=== PATIENT | female | born 1950 | race Caucasian/White ===

== ENCOUNTER 2017-08-25 14:00 | Inpatient (IN) | payer MEDICARE ==
[~2017-08-25] VITALS: Ht 152.4 cm; Wt 46.3 kg
--- NOTE | ~2017-08-25 | PROC ---
[facility] [address] [place] [address] PROCEDURE REPORT Name: LIZ BUENO Room: [address] IN M.R.#: [id number] Admission: 08/25/17 Attend Phys: Jossie Frazier Discharge: 08/29/17 Date of : 46 Report #: [id number] THIS REPORT FOR: //name// For GI report, please see the Provation report in Peceptive 7 content. By: [id number] Records Staff BETTINA /MATIAS
[~2017-08-25 14:00] MED LIST: ACYCLOVIR 800800 MG PO; BAYER CHEWABLE81 MG PO; EMBREL; METHOTREXATE 22.5 M1 PO; NAPROXEN250 MG PO; TRAMADOL 50 MG50 MG PO
[2017-08-25 14:10] VITALS: BP 151/83
[2017-08-25 14:48] LABS: HEMOGLOBIN 9.7 gm/dL (12.0-15.0); MCH 22.9 pg (26.0-34.0); MCHC 31.3 g/dL (28.0-37.0); MCV 73.2 fL (80.0-100.0); RBC 4.24 mil/uL (4.20-5.00); RDW-CV 18.4 % (10.5-14.5); WBC 7.6 thou/uL (4.0-11.0)
[2017-08-25 15:01] LABS: CALCIUM 9.3 mg/dL (8.5-10.1); CREATININE 0.9 mg/dL (0.6-1.3); POTASSIUM 3.3 mmol/L (3.5-5.1)
[2017-08-25 15:17] LABS: ALBUMIN 2.6 g/dL (3.4-5.0); MAGNESIUM 1.6 mg/dL (1.8-2.4); TOTAL BILIRUBIN 0.6 mg/dL (<0.1-1.0); TOTAL PROTEIN 6.8 g/dL (6.4-8.2)
[2017-08-25 18:01] LABS: URINE BLOOD NEGATIVE (Negative); URINE CLARITY CLEAR; URINE COLOR YELLOW; URINE GLUCOSE-RANDOM NEGATIVE (Negative); URINE LEUKOCYTES 1+ (Negative); URINE NITRITE NEGATIVE (Negative); URINE PROTEIN TRACE (Negative); URINE SPECIFIC GRAVITY 1.025 (1.005-1.030); URINE UROBILINOGEN 0.2 E.U./dl (0.2-1.0)
[2017-08-25 18:09] LABS: ICTOTEST (BILI CONFIRMATORY) Negative (Negative); URINE BILIRUBIN 2+ (Negative); URINE KETONES 3+ (Negative)
[2017-08-25 18:11] LABS: HYALINE CASTS 0-3 Few /LPF (None Seen); MUCUS None Seen strn/LPF (None Seen); SQUAMOUS 0-3 Few /LPF (0-3); URINE WBC 6-15 Few /HPF (0-5)
[2017-08-25 18:12] LABS: BACTERIA 1-9 Few /HPF (None Seen); URINE RBC 0-2 Rare /HPF (0-2)
[2017-08-25 18:13] LABS: AMORPHOUS URATES Few /LPF (None Seen)
[2017-08-25 20:14] VITALS: BP 144/93
[2017-08-25 20:30] VITALS: BP 168/86
--- NOTE | 2017-08-25 20:30 | NUR ---
ADMITTED FROM ER. TRANSFERRED FROM [facility] TO [facility] WITH [place]IST. DID MOVE WELL WITH ENCOURAGEMENT. PT HAVING SHORT TERM MEMORY LOSS, ASKING SAME QUESTIONS FREQ THAT WAS JUST ANSWERED. PENITENTIARY MEMORY INTACT. TELEMETRY APPLIED SHOWING SR. SEE ADMISSION ASSESSMENT AND HX. WILL CONT TO MONITOR AND ASSIST NEEDED.
--- NOTE | 2017-08-25 23:30 | NUR ---
PT C/O GENERALIZED DISCOMFORT, ARTHRITIS/FIBROMYALGIA. PT GIVEN TYLENOL STATED SHE COULD NOT TAKE THAT BIG OF PILL SO BROKE IT IN HALF. ABLE TO TAKE FIRST HALF WITHOUT DIFFICULTY BUT UNABLE TO SWALLOW SECOND. PLACED PILL IN APPLESAUCE AND IMMEDIATELY BEGAN GAGGING, THEN VOMITED. REASSURANCE GIVEN. PT NPO AFTER MN ORDERED. IV FLUIDS INFUSING.
[2017-08-26] VITALS: BP 149/84
--- NOTE | 2017-08-26 02:46 | NUR ---
PT REMAINS AWAKE AND RESTLESS. C/O ITCHING ALL OVER. ON ADMIT C/O ITCHING UNDER RT ARM. SM RED HEALING BUMP NOTED, NO INFLAMMATION NOTED. REASSURANCE GIVEN.
[2017-08-26 04:00] VITALS: BP 161/76
--- NOTE | 2017-08-26 05:56 | NUR ---
AWAKE ALL NIGHT AND RESTLESS. CONT TO C/O ITCHING ALL OVER ESPECIALLY HER BACK. NO REDNESS OR RASH NOTED. ASSISTED TO BSC, TRANSFERS WELL WITH 1 ASSIST. NO CHANGE IN ASSESSMENT. TELEMETRY CONT TO SHOW SR. HS GOAL OF SAFETY MET BUT NOT REST. HOURLY OBSERVATION
[2017-08-26 08:00] VITALS: BP 152/68
--- NOTE | 2017-08-26 10:44 | NUR ---
VSS, ASSUMED CARE IN THE AM, ASSESSMENT PERFORMED AND CHARTED, FALL PRECAUTIONS IN PLACE AND CALL LIGHT IN REACH, PT IS A&O4 AND UP WITH ONE, PT IS ON RA AND RACING SR ON THE MONITOR, PT HAS PAIN IN LEGS SATES PAIN 3 OUT OF 10, PT GOAL IS TO COMPLETE EGD AND SIT UP IN CHAIR, WILL FOLLOW WITH PLAN O CARE,
[2017-08-26 11:19] VITALS: BP 152/68
[2017-08-26 12:33] LABS: % SATURATION 9 % (20-39); IRON 25 ug/dL (50-175)
[2017-08-26 14:11] VITALS: BP 135/66
--- NOTE | 2017-08-26 19:53 | NUR ---
vss, pt is NOT PROGRESSING TOWARDS GOAL, PT REFUSED TO COMPLETED GASTRIC EMPTYING STUDY, AND IS VERY NEEDY, CALLS OUT FOR EVERY LITTLE THING, PT IS ON RA AND IS TRACING SR ON THE MONITOR, BUT REFUSES TO TAKE ANY TYLENOL. PT IS UP WITH ONE TO BSC. HOURLY ROUNDS COMPLETED.
[2017-08-26 20:00] VITALS: BP 164/82
--- NOTE | 2017-08-26 20:00 | NUR ---
RECEIVED REPORT AND ASSUMED CARE OF PT, ASSESSMENT COMPLETED. MULTIPLE FAMILY IN ROOM. THEY HAVE CONCERNS ABOUT PT NOT GETTING HER PAIN MED. EXPLAINED THROAT HAD BEEN DILATED BUT PT REFUSING TO TAKE PILLS STATING SHE NEVER COULD TAKE THEM. CONCERNED ABOUT NEED FOR SOLAR DESIGN ENGINEER CONSULT EXPLAINED NEED TO FOLLOW UP WHEN DISCHARGED. CONCERNED ABOUT NOT EATING AND GETTING NUTRITION, REASSURANCE GIVEN. EXPLAINED TO FAMILY PT WOULD BE PLACED INTO ISOLATION DUE TO MRSA SCREEN CAME BACK POSITIVE. TELEMETRY ON SHOWING SR. WILL CONT TO MONITOR AND ASSIST NEEDED.
[2017-08-27 00:30] VITALS: BP 132/91
[2017-08-27 04:27] VITALS: BP 163/76
--- NOTE | 2017-08-27 06:57 | NUR ---
SLEPT WELL. ASSISTED TO BSC, TRANSFERS WELL WITH 1 ASSIST. BP INCREASED AND HR INCREASED. SEE INTERVENTIONS. PT DOES NOT WANT TO DO THINGS FOR HERSELF, ENCOURAGEMENT GIVEN. MET HS GOALS OF REST AND SAFETY. HOURLY ROUNDING OBSERVED.
[2017-08-27 08:00] VITALS: BP 176/85
--- NOTE | 2017-08-27 09:12 | NUR ---
Pt is A&O. Resides at home with 2 sons. Pt states that she is mostly independent, she prepares the meals and they share the house upkeep. Pt states that she can drive, but states that she hasn't been driving lately. No DME. Hx of HH, but she does not recall the name of the agency. No hx of SNF. Strong support sx. [place], discussed options, Pt would want to go to either [facility] or [facility]. Referrals faxed to both. Anticipate dc within the next 1-2 days. Following.
--- NOTE | 2017-08-27 10:46 | NUR ---
[facility] Pt at dc. They are able to accept Pt on Tuesday if ready to dc. DC orders will need to be faxed to [phone]. Nurse report number is [phone]. Chart will need to be copied. Transportation will need to be arranged through [employer] [phone].
--- NOTE | 2017-08-27 13:04 | EKG ---
[place] [address] ELECTROCARDIOGRAM REPORT Name: LIZ BUENO Room: [address] ADM IN .R.#: [id number] Admission: 08/25/17 Attend Phys: Jossie Frazier Discharge: Date of : 46 Report #: [id number] THIS REPORT FOR: //name// [facility] ED Test Date: 2017-08-25 Test Time: 18:02:44 Pat Name: LIZ BUENO Department: Room: [place] [address] Gender: F [employer] Seafood: : 1950 Requested By: Marshal Park Order Number: [id number] MD: Harrison Cannon Measurements Intervals [place] Rate: 82 P: 42 [place]: 159 QRS: 35 QRSD: 89 T: -27 QT: 391 QTc: 457 Interpretive Statements Sinus rhythm Borderline T abnormalities, inferior leads No previous ECG available for comparison Electronically Signed On 08-27-2017 13:04:39 CDT by Harrison Cannon [email or web address] <ELECTRONICALLY SIGNED> By: Harrison Cannon MD, [facility] 08/27/17 1304 180 01 Harrison Cannon MD, [facility] /EPI
[2017-08-27 13:14] VITALS: BP 154/78
--- NOTE | 2017-08-27 16:21 | NUR ---
PT SOMEWHAT PROGRESSING TOWARDS GOALS THIS SHIFT. STARTED ON PT/OT THIS SHIFT. VSS. ATTEMPTED TO EAT BREAKFAST THIS AM AND BECAME NAUSEATED. FAMILY AT BEDSIDE THIS SHIFT. NO CONCERNS AT THIS TIME. CLWR. WCTM.
[2017-08-27 16:41] VITALS: BP 190/81
[2017-08-27 20:00] VITALS: BP 190/74
[2017-08-28 00:08] VITALS: BP 201/97
--- NOTE | 2017-08-28 02:16 | NUR ---
PATIENT RESTING IN BED. DENIES COMPLAINTS OF PAIN, DISCOMFORT, OR SOA. INCONT. OF BOWEL AND BLADDER. TURN EVERY 2 HOURS. BED IN LOW POSITION, CALL LIGHT IN REACH, BED ALARM ON. NO SIGN OF DISTRESS. CONT. WITH CURRENT PLAN OF CARE AT THIS TIME.
[2017-08-28 04:00] VITALS: BP 169/83
--- NOTE | 2017-08-28 06:38 | NUR ---
PATIENT SLEEPING WITHOUT COMPLAINTS. CONT. IVF WITHOUT DIFF IN LT AC 20G. DENIES PAIN, DISCOMFORT OR SOA. CONT. WITH PLAN OF CARE
[2017-08-28 08:00] VITALS: BP 182/79
[2017-08-28 11:37] VITALS: BP 151/77
[2017-08-28 14:31] LABS: ABSOLUTE BASOPHILS 0.1 thou/uL (0.0-0.2); ABSOLUTE LYMPHOCYTES 0.9 thou/uL (0.8-5.3); ABSOLUTE MONOCYTES 0.8 thou/uL (0.0-1.2); ABSOLUTE NEUTROPHILS 5.8 thou/uL (1.6-8.1); BASOPHILS 0.8 %; EOSINOPHILS 0.4 %; HEMATOCRIT 24.9 % (37.0-47.0); HEMOGLOBIN 7.9 gm/dL (12.0-15.0); LYMPHOCYTES 12.2 %; MCH 22.9 pg (26.0-34.0); MCHC 31.9 g/dL (28.0-37.0); MCV 71.8 fL (80.0-100.0); MONOCYTES 10.6 %; MPV 6.9 fl. (7.2-11.1); NUCLEATED RBCS 0 /100WBC; RBC 3.47 mil/uL (4.20-5.00); RDW-CV 18.2 % (10.5-14.5); WBC 7.6 thou/uL (4.0-11.0)
[2017-08-28 14:32] LABS: PLATELET COUNT* 372 thou/uL (150-400)
[2017-08-28 14:41] LABS: ALBUMIN 1.9 g/dL (3.4-5.0); CALCIUM 8.1 mg/dL (8.5-10.1); CREATININE 0.8 mg/dL (0.6-1.3); MAGNESIUM 1.2 mg/dL (1.8-2.4); TOTAL BILIRUBIN 0.6 mg/dL (<0.1-1.0); TOTAL PROTEIN 5.4 g/dL (6.4-8.2)
[2017-08-28 15:01] LABS: POTASSIUM 2.9 mmol/L (3.5-5.1)
[2017-08-28 15:20] LABS: ANISOCYTOSIS 2+; MICROCYTES 2+; OVALOCYTES 1+
[2017-08-28 15:21] LABS: PLATELET ESTIMATE ADEQUATE; POIKILOCYTOSIS 1+
[2017-08-28 16:04] VITALS: BP 184/79
--- NOTE | 2017-08-28 19:01 | NUR ---
patinet resting in bed. up with assist x1 to bedside commode. paitnet has been frequently educated on available pain medications. patinet has been reluctnt to attempt po medications. vital signs stable. iv magnesium and potassium infusing. hourly rounding completed for patient safety. plan fo dc to snf tomorrow for rehab.
[2017-08-28 20:00] VITALS: BP 137/60
[2017-08-29] VITALS: BP 159/80
[2017-08-29 04:00] VITALS: BP 155/78
[2017-08-29 05:07] LABS: HEMATOCRIT 23.5 % (37.0-47.0); HEMOGLOBIN 7.7 gm/dL (12.0-15.0); MCH 23.3 pg (26.0-34.0); MCHC 32.8 g/dL (28.0-37.0); MCV 71.3 fL (80.0-100.0); MPV 7.2 fl. (7.2-11.1); RBC 3.3 mil/uL (4.20-5.00); RDW-CV 18.3 % (10.5-14.5); WBC 8.4 thou/uL (4.0-11.0)
[2017-08-29 05:08] LABS: CREATININE 0.9 mg/dL (0.6-1.3); POTASSIUM 3.2 mmol/L (3.5-5.1)
--- NOTE | 2017-08-29 06:05 | NUR ---
PATIENT NOT PROGRESSING TOWARDS GOALS: PATIENT RELUCTANT TO TAKE PO MEDICATIONS DUE TO NAUSEA AND DECREASED APPETITE. PATIENT ENCOURAGED TO HYDRATE, HOWEVER, PATIENT REFUSING TO TAKE WATER. PATIENT C/O PAIN THROUGHOUT SHIFT. PATIENT EDUCATED ON NON-PHARMACOLOGICAL METHODS OF PAIN RELIEF AND ENCOURAGED TO MOVE TOLERATED TO PREVENT JOINTS FROM STIFFENING. HOWEVER, PATIENT IS QUICK TO FALL ASLEEP SO NO PAIN MEDICATION HAS BEEN ADMINISTERED THIS SHIFT. PATIENT STATES SHE IS "SO TIRED." HOURLY ROUNDING OBSERVED. CALL LIGHT WITHIN REACH
[2017-08-29 08:00] VITALS: BP 161/77
--- NOTE | 2017-08-29 09:50 | NUR ---
Pt may be ready to dc today. Plan continues to be for Pt to dc to [facility]. CM faxed therapy notes, facility is able to accept Pt today, pending Dr writing dc orders. Discussed DPOA, Pt stated that she would want to appoint her son, Damon, but stated that she does not want to complete a DPOA at this time. CM to f/u.
--- NOTE | 2017-08-29 11:52 | NUR ---
Pt discharging to [facility] today, facility to merchandise pickup/receiving associate at 2pm. Faxed dc orders and copy of newly completed DPOA, appointing Pt's sons Damon and Narinder as agents. Chart copied. Nurse report number provided, [phone]. Updated Pt's son, Damon [phone], of disposition.
[2017-08-29] MEDS ORDERED: FLORANEX TABLE1 EACH PO (11:56)
[2017-08-29] MEDS ORDERED: COLACE100 MG PO (11:56)
[2017-08-29] MEDS ORDERED: FLORASTOR250 MG PO (11:57)
[2017-08-29] MEDS ORDERED: METAMUCIL1 EAC1 PO (11:58)
[2017-08-29] MEDS ORDERED: LEVAQUIN 750 M750 MG PO (11:58)
[2017-08-29] MEDS ORDERED: IBUPROFEN 800800 M1 PO (12:00)
[2017-08-29] MEDS ORDERED: OXYCODONE HCL15 MG PO (12:04)
[2017-08-29 12:09] VITALS: BP 161/77
--- NOTE | 2017-08-29 14:00 | NUR ---
ORDER RECEIVED TO DISCHARE JONNY TO [facility] FOR REHAB NUR[facility]. MED REC, MEDICATION EDUCATION ,STROKE EDUCATION, AND NEED FOR FOLLOW UP APPOINTMENTS COVERED AND STATED UNDERSTOOD BY JONNY. IV AND TELEMETRY PACK REMOVED. PATIENT TRANSPORTED VIA WHEELCHAIR TO [facility]. REPORT CALLED TO RECEIVING RN. DC TIME OF 14:00.
--- NOTE | 2017-09-12 08:21 | CON ---
[address] [address] CONSULTATION Name: XIMENALIZ GARAY Room: [address] IN M.R.#: [id number] Admission: 08/25/17 Attend Phys: Jossei Frazier Discharge: 08/29/17 Date of : 46 Report #: [id number] THIS REPORT FOR: //name// CC: STEFANIA physician/PCP [facility] DO DICTATED BY: Lorna Perez [facility] DATE OF SERVICE: 08/26/2017 She does not have a primary care provider at this time. Please note at the time of this dictation, the patient was seen and physically examined by myself. REASON FOR CONSULTATION: Nausea and vomiting and lack of appetite. HISTORY OF PRESENT ILLNESS: This is a 67-year-old female who states that for the past month, she has had no appetite. Prior to that, she states she was eating okay. She has progressively gotten weak over the past week with little bit of nausea and when she got here, then she did have some nausea and vomiting. She denies any abdominal pain. At this time, she denies any fever or chills, any issues with acid reflux. Her weight has remained stable. She states her bowels move daily to every other day, soft and formed with no noticing of melena or bright red blood. The patient states she has had EGD and colonoscopies done in the past, but not with our group. She cannot recall when or where they were done and states that if she recalls, they were normal at that time. PAST MEDICAL HISTORY: Rheumatoid arthritis, fibromyalgia, and shingles. PAST SURGICAL HISTORY: . FAMILY HISTORY: Negative for any GI or female cancers. ALLERGIES: No known drug allergies. MEDICATIONS: From home she states aspirin, tramadol, and naproxen, all of which are p.r.n. except for the aspirin daily. SOCIAL HISTORY: The patient again denies alcohol, tobacco or illegal drug use and she lives at home with her 2 sons, but is very vague in giving any further information regarding that. REVIEW OF SYSTEMS: Twelve-point review of systems is essentially negative except what [place] [address] CONSULTATION Name: LIZ BUENO Room: [address] IN [facility].#: [id number] Admission: 08/25/17 Attend Phys: Jossie Frazier Discharge: 08/29/17 Date of : 46 Report #: [id number] PHYSICAL EXAMINATION: VITAL SIGNS: Temperature 36.9, pulse 87, respirations 18, blood pressure 152/68. HEART: Regular rate and rhythm. LUNGS: Diminished, but clear. ABDOMEN: Soft, positive bowel sounds in all 4 quadrants, which is some generalized tenderness noted to palpation. LABORATORY DATA: Hemoglobin 9.7, hematocrit 31, white count is 7.6, platelets 492. Sodium 131, potassium 3.3, chloride 97, CO2 21, BUN is 14, creatinine 0.9, GFR 62, and glucose is 106. LFTs normal. Total bilirubin 0.6, alkaline phosphatase 73, ALT 10 and AST is 19. The patient had a chest x-ray, which was normal. IMPRESSION: 1. Nausea and vomiting. 2. Loss of appetite. 3. Weakness. 4. Anemia. 5. History of RA. PLAN: 1. EGD today. 2. Labs, iron studies, B12 and ferritin. 3. Further recommendations to be made after the above have been noted. Thank you for allowing us to participate in this patient's care. Please do not hesitate to call with any questions in regard to this consult. ADDENDUM I have personally seen and examined the patient and reviewed labs and imaging. The patient with history of rheumatoid arthritis who presents with 1-month history of lack of appetite, weakness and nausea. She was found to have microcytic anemia, but denies any hematochezia or melena. She believes that she has had endoscopic evaluation about 5 years ago which was a year prior to her passing away. We will obtain these records. We will rule out different etiologies of anemia. I will also consider upper scope to see why she has early satiety and microcytic anemia. We will make further recommendation once the upper endoscopy is completed. <ELECTRONICALLY SIGNED> By: Olivia Moore MD 09/12/17 0821 1015 [id number] Moore MD /nt
--- NOTE | 2017-09-12 08:22 | CON ---
[address] [address] CONSULTATION Name: LIZ BUENO Room: [address] IN M.R.#: [id number] Admission: 08/25/17 Attend Phys: Jossie Frazier Discharge: 08/29/17 Date of : 46 Report #: [id number] THIS REPORT FOR: //name// CC: STEFANIA physician/PCP [facility] DATE OF SERVICE: 08/26/2017 ADDENDUM I have personally seen and examined the patient and reviewed labs and imaging. The patient with history of rheumatoid arthritis who presents with 1-month history of lack of appetite, weakness and nausea. She was found to have microcytic anemia, but denies any hematochezia or melena. She believes that she has had endoscopic evaluation about 5 years ago which was a year prior to her passing away. We will obtain these records. We will rule out different etiologies of anemia. I will also consider upper scope to see why she has early satiety and microcytic anemia. We will make further recommendation once the upper endoscopy is completed. <ELECTRONICALLY SIGNED> By: Olivia Moore MD 09/12/17 0822 1306 [id number] Moore MD /nt
== END 2017-08-29 13:00 | DRG 391 ==
LOC: M.ERS 14:00 → M.2W 17:25 → M.TBA-ER 17:25 → M.2W 20:30
PROVIDERS: Internal Medicine; Nurse Practitioner Adult Health; Physician Assistant Surgical; ADMIT Internal Medicine
PROC: 0DJ08ZZ Inspection of Upper Intestinal Tract, Via Natural or Artificial Opening Endoscopic (ICD-10-PCS; principal; 2017-08-26)
DX: K22.2 Esophageal obstruction (principal); E43 Unspecified severe protein-calorie malnutrition; N39.0 Urinary tract infection, site not specified; E87.1 Hypo-osmolality and hyponatremia; K44.9 Diaphragmatic hernia without obstruction or gangrene; M79.7 Fibromyalgia; M06.9 Rheumatoid arthritis, unspecified; E83.42 Hypomagnesemia; D64.9 Anemia, unspecified; Z79.899 Other long term (current) drug therapy; Z79.82 Long term (current) use of aspirin

== ENCOUNTER 2019-07-30 17:36 | Inpatient (IN) | payer MEDICARE ==
[~2019-07-30] VITALS: Ht 152.4 cm; Wt 49.5 kg
--- NOTE | ~2019-07-30 | OP ---
[address] [address] OPERATIVE REPORT Name: LIZ BUENO Room: [address] IN M.R.#: [id number] Admission: 07/30/19 Attend Phys: Sunny Alicia MD Discharge: Date of : 46 Report #: [id number] THIS REPORT FOR: //name// cc: Linsey Lara Angela Jo REAL ESTATE INVESTMENT ANALYST ~ THIS REPORT FOR: //name// CC: Linsey Alicia DICTATED BY: Mayur Sanford DO PREOPERATIVE DIAGNOSIS: Right displaced femoral neck fracture. POSTOPERATIVE DIAGNOSIS: Right displaced femoral neck fracture. PROCEDURE: Cemented right hip hemiarthroplasty utilizing the Biomet Echo FX size 9 stem with a size 43/28 bipolar head and -3 neck in addition to 1 bag of Biomet cement. SURGEON: Loyd garcia DO ASSISTANTS: Mayur Sanford DO and Osmany Caldera DO ANESTHESIA: General. FLUIDS: 1000 mL LR. ESTIMATED BLOOD LOSS: 100 mL. DRAINS: None. SPECIMENS: None. COMPLICATIONS: None. CONDITION: Stable to PACU. DISPOSITION: Recovery in PACU and transferred back to the floor. ANTIBIOTICS: 1 g Ancef IV preop. INDICATIONS FOR PROCEDURE: The patient is a very pleasant 69-year-old female. She sustained a ground-level fall last night. She sustained a displaced right femoral neck fracture. We recommended surgical intervention with prosthesis insertion. The risks, benefits, and possible complications including but not limited to bleeding, nerve injury, vascular injury, need for repeat surgery, [facility] [address] [place] [address] OPERATIVE REPORT Name: LIZ BUENO Room: [address] IN M.R.#: [id number] Admission: 07/30/19 Attend Phys: Sunny Alicia MD Discharge: Date of : 46 Report #: [id number] infection, continued or worsening pain, DVT, PE, , anesthesia complications and others were discussed. She understood this and was agreeable to proceed. DESCRIPTION OF PROCEDURE: The patient was met in the preoperative area. The correct site was marked. Consent was obtained. She was transferred to the operative suite and given the benefit of general anesthesia. She was then transferred to the OR table and placed in the lateral decubitus position. She was secured utilizing a pegboard taking care to pad all bony prominences. The right hip was then sterilely prepped and draped in the usual sterile fashion. She did receive antibiotics within 30 minutes prior to the procedure. A timeout was performed to identify the correct patient, procedure, operative site, and antibiotic administration. All in the room were in agreement. The procedure began with a lateral incision centered over the proximal femur. Sharp and blunt dissection was carried down to the fascia. The fascia was then split in line with the incision. We then continued down to the level of the gluteus muscles. The gluteus minimus and medius were then released from the greater trochanter, leaving a residual cuff in order to be repaired afterward. We then made a T capsulotomy. At this point, a fracture hematoma and the fracture was identified. We were able to dislocate the hip and subsequently remove the majority of the femoral head. We then made our neck cut approximately 1 fingerbreadth proximal to the lesser trochanter. We trialed a size 43 head in the acetabulum, which fit well and was stable with motion. We then turned our attention to preparation of the femur. A box osteotome was used to start followed by a rat tail rasp. We then initiated reaming and broaching up to a size 9. A trial 9 stem was placed followed by a -3 neck and 43 head. This was reduced and found to be stable throughout range of motion. Final components were then selected. Trial components were removed. The intramedullary canal was then prepared using copious irrigation and a scrub brush. The final components were thrown on the back table. The cement was mixed appropriately. We placed a cement restrictor into the femoral canal in the appropriate position that we marked. We then used the pressurized gun to inject cement into the femoral canal. This was then followed by placement of the final stem. The cement was allowed to harden for the appropriate amount of time. We then placed the final head and impacted this into place. It was stable on the neck. We then reduced the hip. The hip was found to be stable with shucking and through range of motion. The wound and incision was then thoroughly irrigated. We closed the capsule with Vicryl in a pxsqch-ul-hyilz fashion. We then reattached the gluteus tendons to the femur using #5 FiberWire in zbfpzo-mq-cewpe fashion. This was oversewn with #1 Vicryl sutures also in a hdrazg-vz-pwoir fashion. We then reapproximated the tensor fascia with #1 Vicryl in hecvbe-dn-bzfga fashion. The subcutaneous fat was reapproximated with interrupted 2-0 Vicryl sutures. We then reapproximated the subcutaneous tissue using 2-0 simple inverted sutures. This was followed by miki on the skin. Sterile Mepilex dressing was then applied. All needle and sponge counts were correct x 2 at the end of the case. She was extubated and transferred to the PACU in stable condition. [facility] [address] [place] [address] OPERATIVE REPORT Name: XIMENALIZ JARROD Room: [address] IN M.R.#: [id number] Admission: 07/30/19 Attend Phys: Sunny Alicia MD Discharge: Date of : 46 Report #: [id number] Garcia was present and scrubbed throughout all critical aspects of the case. There were no obvious complications. POSTOPERATIVE COURSE: She will be weightbearing as tolerated on the right lower extremity with mechanical and chemical DVT prophylaxis with Eliquis b.i.d. for 14 days. We will have her work with physical and occupational therapy. By: [id number] Garcia DO /christos
[~2019-07-30 17:36] MED LIST changes: +COLACE100 MG PO; +FLORANEX TABLE1 EACH PO; +FLORASTOR250 MG PO; +IBUPROFEN 800800 M1 PO; +LEVAQUIN 750 M750 MG PO; +METAMUCIL1 EAC1 PO; +OXYCODONE HCL15 MG PO
[2019-07-30 17:39] VITALS: BP 189/83
[2019-07-30] MEDS ORDERED: FAMOTIDINE 20 M20 MG PO (17:48)
[2019-07-30] MEDS ORDERED: PREDNISONE 5 MG5 M1 PO (17:48)
[2019-07-30] MEDS ORDERED: NAPROSYN500 M1 PO (17:48)
[2019-07-30] MEDS ORDERED: SENEXON-S 50-81 EACH PO (17:49)
[2019-07-30] MEDS ORDERED: TRAMADOL 50 MG50 MG PO (17:49)
[2019-07-30] MEDS ORDERED: VITAMIN D21250 MC1 PO (17:49)
[2019-07-30] MEDS ORDERED: DULCOLAX STOOL100 M1 PO (17:50)
[2019-07-30] MEDS ORDERED: BENADRYL25 MG PO (17:50)
[2019-07-30] MEDS ORDERED: BIOFREEZE118 ML TOP (17:51)
[2019-07-30] MEDS ORDERED: MIRALAX17 GM PO (17:51)
[2019-07-30] MEDS ORDERED: MILK OF MA400 MG/5 M PO (17:51)
[2019-07-30 18:42] LABS: ABSOLUTE BASOPHILS 0.1 thou/uL (0.0-0.2); ABSOLUTE LYMPHOCYTES 1.1 thou/uL (0.8-5.3); ABSOLUTE MONOCYTES 0.6 thou/uL (0.0-1.2); ABSOLUTE NEUTROPHILS 9.6 thou/uL (1.6-8.1); BASOPHILS 0.6 %; EOSINOPHILS 0.2 %; HEMATOCRIT 31.5 % (37.0-47.0); HEMOGLOBIN 9.9 gm/dL (12.0-15.0); LYMPHOCYTES 9.7 %; MCH 22.7 pg (26.0-34.0); MCHC 31.5 g/dL (28.0-37.0); MONOCYTES 4.9 %; MPV 6.9 fl. (7.2-11.1); NUCLEATED RBCS 0 /100WBC; PLATELET COUNT* 482 thou/uL (150-400); POLYS 84.6 %; RBC 4.37 mil/uL (4.20-5.00); RDW-CV 18.3 % (10.5-14.5); WBC 11.4 thou/uL (4.0-11.0)
[2019-07-30 18:51] LABS: CALCIUM 9.1 mg/dL (8.5-10.1); CREATININE 1.2 mg/dL (0.6-1.3); POTASSIUM 4.3 mmol/L (3.5-5.1)
[2019-07-30 18:56] LABS: TOTAL BILIRUBIN 0.4 mg/dL (<0.1-1.0); TOTAL PROTEIN 6.9 g/dL (6.4-8.2)
[2019-07-30 19:03] LABS: ANISOCYTOSIS 1+; OVALOCYTES 1+
[2019-07-30 19:04] LABS: HYPOCHROMASIA 1+; MICROCYTES 2+; PLATELET ESTIMATE ADEQUATE
[2019-07-30 19:45] VITALS: BP 184/103
[2019-07-30 19:56] LABS: APTT 25.4 Seconds (25.0-31.3); PROTIME 10.3 Seconds (9.20-11.50)
[2019-07-30 20:30] VITALS: BP 143/71
[2019-07-31 04:14] VITALS: BP 164/79
[2019-07-31 06:20] LABS: HEMATOCRIT 30.5 % (37.0-47.0); HEMOGLOBIN 9.8 gm/dL (12.0-15.0); MCH 23.1 pg (26.0-34.0); MCHC 32.2 g/dL (28.0-37.0); MCV 71.7 fL (80.0-100.0); MPV 6.7 fl. (7.2-11.1); NUCLEATED RBCS 0 /100WBC; PLATELET COUNT* 464 thou/uL (150-400); RBC 4.26 mil/uL (4.20-5.00); RDW-CV 18.3 % (10.5-14.5); WBC 10.6 thou/uL (4.0-11.0)
[2019-07-31 06:26] LABS: CALCIUM 9.2 mg/dL (8.5-10.1); CREATININE 1.2 mg/dL (0.6-1.3); POTASSIUM 4.4 mmol/L (3.5-5.1)
[2019-07-31 06:55] LABS: ABSOLUTE LYMPHOCYTES 0.6 thou/uL (0.8-5.3); ABSOLUTE MONOCYTES 0.1 thou/uL (0.0-1.2); ABSOLUTE NEUTROPHILS 9.9 thou/uL (1.6-8.1); MICROCYTES 1+; PLATELET ESTIMATE INCREASED
[2019-07-31 06:56] LABS: ANISOCYTOSIS 1+; HYPOCHROMASIA Occasional; OVALOCYTES 1+; POIKILOCYTOSIS 1+
[2019-07-31] MEDS ORDERED: NAPROXEN250 MG PO (07:04)
[2019-07-31] MEDS ORDERED: OXYCODONE HCL10 MG PO (07:06)
[2019-07-31] MEDS ORDERED: DULCOLAX STOOL100 M1 PO (07:08)
[2019-07-31 08:00] VITALS: BP 170/84
--- NOTE | 2019-07-31 11:02 | EKG ---
[place] [address] ELECTROCARDIOGRAM REPORT Name: LIZ BUENO Room: [address] ADM IN M.R.#: [id number] Admission: 07/30/19 Attend Phys: Sunny Alicia, Discharge: Date of : 46 Date of Service: 07/30/191920 Report #: [id number] THIS REPORT FOR: //name// [facility] ED Test Date: 2019-07-30 Test Time: 19:21:49 Pat Name: LIZ BUENO Department: Room: [facility] Gender: F Qm Nurse: K[facility] : 1950 Requested By: Melissa Vásquez Order Number: [id number] MD: Jesus Arndt Measurements Intervals [place] Rate: 66 P: 44 [place]: 147 QRS: 40 QRSD: 80 T: -53 QT: 421 QTc: 442 Interpretive Statements Sinus rhythm Probable LVH with secondary repol abnrm Baseline wander in lead(s) V4 Compared to ECG 08/25/2017 18:02:44 No significant change Electronically Signed On 07-31-2019 11:01:21 CDT by Jesus Arndt [email or web address] <ELECTRONICALLY SIGNED> By: Jesus Arndt MD, FACC 07/31/19 1101 20 20 Jesus Arndt MD, FAC /EPI
[2019-07-31 20:00] VITALS: BP 151/56
[2019-08-01 06:39] LABS: ABSOLUTE LYMPHOCYTES 0.9 thou/uL (0.8-5.3); ABSOLUTE MONOCYTES 0.9 thou/uL (0.0-1.2); ABSOLUTE NEUTROPHILS 8.2 thou/uL (1.6-8.1); BASOPHILS 0.1 %; HEMATOCRIT 26.2 % (37.0-47.0); HEMOGLOBIN 8.4 gm/dL (12.0-15.0); MCH 22.9 pg (26.0-34.0); MCHC 32.1 g/dL (28.0-37.0); MCV 71.5 fL (80.0-100.0); MONOCYTES 8.9 %; MPV 6.9 fl. (7.2-11.1); NUCLEATED RBCS 0 /100WBC; PLATELET COUNT* 393 thou/uL (150-400); RBC 3.67 mil/uL (4.20-5.00); RDW-CV 18.3 % (10.5-14.5)
[2019-08-01 06:58] LABS: CALCIUM 8.5 mg/dL (8.5-10.1); CREATININE 1.1 mg/dL (0.6-1.3); POTASSIUM 4.5 mmol/L (3.5-5.1)
[2019-08-01 08:15] VITALS: BP 161/73
[2019-08-01 16:15] VITALS: BP 168/69
[2019-08-01 20:00] VITALS: BP 174/73
[2019-08-02] VITALS: BP 146/60
[2019-08-02 05:36] LABS: ABSOLUTE BASOPHILS 0.1 thou/uL (0.0-0.2); ABSOLUTE EOSINOPHILS 0.1 thou/uL (0.0-0.7); ABSOLUTE LYMPHOCYTES 2.1 thou/uL (0.8-5.3); ABSOLUTE MONOCYTES 0.8 thou/uL (0.0-1.2); ABSOLUTE NEUTROPHILS 6.2 thou/uL (1.6-8.1); BASOPHILS 0.7 %; EOSINOPHILS 0.7 %; HEMATOCRIT 26.1 % (37.0-47.0); HEMOGLOBIN 8.4 gm/dL (12.0-15.0); LYMPHOCYTES 23.2 %; MCH 23.2 pg (26.0-34.0); MCHC 32.1 g/dL (28.0-37.0); MCV 72.4 fL (80.0-100.0); MONOCYTES 8.4 %; MPV 6.9 fl. (7.2-11.1); NUCLEATED RBCS 0 /100WBC; PLATELET COUNT* 393 thou/uL (150-400); RDW-CV 18.7 % (10.5-14.5); WBC 9.2 thou/uL (4.0-11.0)
[2019-08-02 05:48] LABS: CALCIUM 8.5 mg/dL (8.5-10.1); CREATININE 1.1 mg/dL (0.6-1.3); POTASSIUM 3.7 mmol/L (3.5-5.1)
[2019-08-02 08:00] VITALS: BP 189/77
[2019-08-02] MEDS ORDERED: ELIQUIS2.5 MG PO (14:26)
[2019-08-02] MEDS ORDERED: OXYCODONE HCL10 MG PO (14:32)
== END 2019-08-02 16:24 | DRG 470 ==
LOC: M.ERS 17:36 → M.TBA-ER 18:57 → M.2W 18:57
PROVIDERS: Orthopaedic Surgery; Personal Emergency Response Attendant; ADMIT Internal Medicine
PROC: 0SRR0J9 Replacement of Right Hip Joint, Femoral Surface with Synthetic Substitute, Cemented, Open Approach (ICD-10-PCS; principal; 2019-07-31)
DX: M80.051A Age-related osteoporosis with current pathological fracture, right femur, initial encounter for fracture (principal); E44.0 Moderate protein-calorie malnutrition; F11.20 Opioid dependence, uncomplicated; D62 Acute posthemorrhagic anemia; S72.041A Displaced fracture of base of neck of right femur, initial encounter for closed fracture; W01.0XXA Fall on same level from slipping, tripping and stumbling without subsequent striking against object, initial encounter; M06.9 Rheumatoid arthritis, unspecified; M79.7 Fibromyalgia; G89.29 Other chronic pain; Z79.82 Long term (current) use of aspirin; Z79.899 Other long term (current) drug therapy; Y93.89 Activity, other specified; Y92.89 Other specified places as the place of occurrence of the external cause; Y99.8 Other external cause status; Z68.21 Body mass index [BMI] 21.0-21.9, adult

== ENCOUNTER 2019-08-02 13:40 | Inpatient (IN) | payer MEDICARE ==
[~2019-08-02] VITALS: Ht 152.4 cm; Wt 42.2 kg
[~2019-08-02 13:40] MED LIST changes: +BENADRYL25 MG PO; +BIOFREEZE118 ML TOP; +DULCOLAX STOOL100 M1 PO; +FAMOTIDINE 20 M20 MG PO; +MILK OF MA400 MG/5 M PO; +MIRALAX17 GM PO; +NAPROSYN500 M1 PO; +OXYCODONE HCL10 MG PO; +PREDNISONE 5 MG5 M1 PO; +SENEXON-S 50-81 EACH PO; +VITAMIN D21250 MC1 PO
[2019-08-02] MEDS ORDERED: ELIQUIS2.5 MG PO (14:26)
[2019-08-02] MEDS ORDERED: OXYCODONE HCL10 MG PO (14:32)
--- NOTE | 2019-08-02 18:44 | NUR ---
69 YR OLD FEMALE ADMITTED TO ROOM 324 S/P ORIF RIGHT HIP. ADMISSION HISTORY AND ASSESSMENT COMPLETED. PT ORIENTED TO ROOM, CALL LIGHT AND BED CONTROLS. HOURLY ROUNDING AND FALL PRECAUTIONS IMPLEMENTED.
[2019-08-02 20:18] VITALS: BP 178/72
[2019-08-03 04:43] LABS: HEMATOCRIT 26.5 % (37.0-47.0); HEMOGLOBIN 8.6 gm/dL (12.0-15.0); MCH 23.2 pg (26.0-34.0); MCHC 32.4 g/dL (28.0-37.0); MCV 71.5 fL (80.0-100.0); MPV 6.6 fl. (7.2-11.1); RBC 3.7 mil/uL (4.20-5.00); RDW-CV 18.3 % (10.5-14.5); WBC 10.3 thou/uL (4.0-11.0)
[2019-08-03 05:05] LABS: ALBUMIN 2.2 g/dL (3.4-5.0); CALCIUM 8.6 mg/dL (8.5-10.1); TOTAL PROTEIN 6.1 g/dL (6.4-8.2)
--- NOTE | 2019-08-03 05:51 | NUR ---
PATIENT C/O PAIN AT BEGINNING OF SHIFT. TRAMADOL GIVEN ALONG WITH OTHER MEDICATIONS AND PT SLEPT UNTIL MORNING. PT INCONTINENT OF URINE. PT UNABLE TO ASSIST WITH TURN WHEN CLEANING UP PATIENT. PT HAS SURGICAL ISLAND DSG ON RT HIP; C/D/I. PT TURNED Q2H PER PROTOCAL. FREQUENTLY USED ITEMS AND CALL LIGHT WITHIN REACH. SIDERAILS UPX4 AND BED ALARM ON. WILL CONTINUE TO MONITOR
[2019-08-03 07:41] VITALS: BP 148/61
--- NOTE | 2019-08-03 14:28 | NUR ---
Pt lives alone in [facility] apt[facility]. Pt has assistance with bathing, meals and housecleaning. Pt was independent with grooming. Pt uses RW. Pt has supportive children. SW to continue to follow to assist with safe dc planning and communicate with family as needed.
--- NOTE | 2019-08-03 16:32 | NUR ---
ALERT AND ORIENTED X4. UP WITH 1-2 ASSIST, GAIT BELT AND WALKER. DRESSING DRESSING OVER RIGHT HIP INCISION AND RIGHT ELBOW. USING PO PAIN MEDICATION TO HELP WITH JOINTS AND RIGHT HIP PAIN. CONTINENT OF BOWEL AND BLADDER TODAY. USES CALL LIGHT WHEN NEEDING ASSIST. FALL PRECAUTIONS IN PLACE. BED ALARM AND CHAIR ALARM USED.
[2019-08-03 20:18] VITALS: BP 194/83
--- NOTE | 2019-08-04 06:47 | NUR ---
PATIENT CALLED FOR ASSISTANCE TO BSC AT BEGINNING OF SHIFT. PT UP WITH MAX OF TWO, G.BELT AND WALKER. PT UNABLE TO MOVE FEET TO TURN WALKER TO GET ON COMMODE; MUCH ENCOURAGEMENT GIVEN. PT WAS UNABLE TO VOID BECAUSE SHE WAS TOO UPSET TO SIT THERE ANYMORE SHE STATED. PT WAS UNABLE TO GET BACK IN BED AND WAS PUT BACK TO BED WITH MAX OF TWO WITH NO HELP FROM PT. PT REFUSED BEDPAN AND WENT TO SLEEP. PT WOKE DIRECTOR OF SECURITIES AND REAL ESTATE AND HAD BEEN INCONTINENT OF URINE. PT GIVEN PAIN MEDICATION JUST PRIOR TO CLEANING UP PATIENT AND SHE TOLERATED TURNING BETTER BUT WAS STILL OF VERY LITTLE ASSIST WITH TURNS. PT SCREAMS OUT LOUDLY WHEN TURNING. FREQUENTLY USED ITEMS AND CALL LIGHT WITHIN REACH. SIDERAILS UPX4 AND BED ALARM ON. WILL CONTINUE TO MONITOR.
[2019-08-04 09:25] VITALS: BP 171/79
--- NOTE | 2019-08-04 10:21 | NUR ---
Nutrition: Pt admitted to Rehab s/p hip surgery. Chronic opioid. Wt stable, 99#. Albumin 2.2, prealb 14.2. Pt has feeding assist at living facility. Per RN, pt is eating well, regular diet. Mild risk. Will follow weekly for protein stores and po intake.
--- NOTE | 2019-08-04 18:17 | NUR ---
ASSESSMENT COMPLETED DOCUMENTED THIS MORNING. PATIENT HAS BEEN UP WITH THERAPY AND TOLERATED INCREASING ACTIVITY THROUGHOUT THE DAY. HAS HAD ACETAMINOPHEN 650MG X2 AND TRAMADOL 50MG X1 TODAY WITH GOOD PAIN RELIEF VOICED. RIGHT HIP INCISION IS C/D/I WITH NO REDNESS OR EDEMA NOTED AT SITE. INCONT. OF URINE....STATES "WHEN IT COMES I CAN'T WAIT!". BRIEFS SUPPLIED AND ASSISTED WITH PUTTING ON.
[2019-08-04 20:00] VITALS: BP 161/65
--- NOTE | 2019-08-04 20:20 | NUR ---
RESTING IN BED AND WATCHING TV. PAIN MEDICATION GIVEN FOR COMPLAINT OF RIGHT HIP PAIN. RIGHT HIP DRESSING INTACT WITH 2 LAYLA SIZED DRIED DRAINAGE AT PROXIMAL END OF THE DRESSING. HANDS DEFORMED FROM FIBROMYALAGIA. TENDS TO BE ANXIOUS AND FUSSY. CALL LIGHT WITHIN REACH.
--- NOTE | 2019-08-05 05:09 | NUR ---
LON RIZO. INCONTINENT OF URINE X ONE. DENYS CARE GIVEN. HOURLY ROUNDING IN PROGRESS.
[2019-08-05 08:24] VITALS: BP 166/78
--- NOTE | 2019-08-05 18:07 | NUR ---
ASSESSMENT COMPLETED DOCUMENTED THIS MORNING. PATIENT HAS FREQUENTLY BEEN ON THE CALLIGHT TODAY FOR VARIOUS "NEEDS", OXY IR 10MG GIVEN AT 0920, 1350, TRAMADOL 50MG AT 1500, ACETAMINOPHEN 650MG AT 0920, BENADRYL 25MG AT 1130. RIGHT HIP INCISION IS C/D/I. PRUNE JUICE AND MIRALAX GIVEN THIS MORNING, NO BM NOTED.
[2019-08-05 19:15] VITALS: BP 138/72
--- NOTE | 2019-08-05 20:00 | NUR ---
IN BED WATCHING TV. IN BETTER SPIRITS TONIGHT. TALKATIVE AND REMINISCING. AGREED TO DRINK PRUNE JUICE. DECLINED OFFER OF MILK OF MAGNESIA. CALL LIGHT WITHIN REACH. TRANSFERS TO BEDSIDE COMMODE WITH MAX ASSIST OF ONE, STAND, PIVOT.
--- NOTE | 2019-08-06 05:25 | NUR ---
RESTED SOUNDLY. TURNS SELF IN BED. NO FURTHER COMPLAINT OF PAIN. HOURLY ROUNDING IN PROGRESS.
[2019-08-06 07:52] VITALS: BP 107/58
--- NOTE | 2019-08-06 17:00 | NUR ---
PT A&OX4 VSS. PT UP MAX ASSIST W/GAIT BELT AND WALKER. PT HAD EPISODES OF BLADDER INCONTINENCE, PT IN BRIEF AT THIS TIME PER HER REQUEST. ORTHO IN TO SEE PT THIS AM, DRESSING CAN BE CHANGED NEEDED, DELFINO MOST LKELY TO BE REMOVED IN ANOTHER WEEK. PT UP TO RECLINER WITH THERAPY. PRN MIRALAX AND PRUNE JUICE TO ENCOURAGE BM. PT EDUCATED REGARDING USE OF OPIATE PAIN MEDS AND CONSTIPATION. PT STATES UNDERSTANDING, BUT CONTINUES TO FREQUENTLY REQUEST PAIN PILLS. PT RESTS IN ROOM WITH CALL LIGHT IN REACH. WILL CONTINUE TO MONITOR.
[2019-08-06 20:15] VITALS: BP 166/79
--- NOTE | 2019-08-07 05:14 | NUR ---
PT SLEPT WELL OVERNIGHT. ASSISTED UP TO BSC TO VOID WITHOUT DIFFICULTY, PT STATES SHE HAD SMALL BM LAST EVENING, REFUSING HS STOOL SOLFTENERS-EDUCATION GIVEN. PO PAIN MED GIVEN FOR CO R HIP PAIN WITH GOOD RESULT. R HIP DRSG CDI. NO LABS THIS MORNING. ABLE TO USE CALL LITE AND MAKE NEEDS KNOWN. TURNED Q2 HOURS AND PRN FOR SKIN CARE AND COMFORT PT WOULD ALLOW. CALL LITE IN EASY REACH, BED ALARM ON FOR SAFETY.
[2019-08-07 07:35] VITALS: BP 188/77
--- NOTE | 2019-08-07 16:57 | NUR ---
PT A&OX3 VSS. PT REPORTS SLEEPING ALL NOC. NO LABS ORDERED THIS SHIFT. PT ON ROOM AIR. PT UP ASSIST X1 W/ GAIT BELT AND WALKER. PT DOES REQUIRE EXTRA TIME DURING TRANSFERS. PT IS WB TOLERATED FOR R HIP FX. PT UP TO RECLINER THIS SHIFT. PRN MIRALAX ADMINISTERED TO ENCOURAGE BM. PT EDUCATED REGARDING USE OF OPIATE PAIN MEDICATIONS AND CONSTIPATION. PT ENCOURAGED TO STAY UP THIS SHIFT PER THERAPIES. PT TAKES PILLS WHOLE, INDIVIDUALLY WITH NO DIFFICULTY SWALLOWING. PT RESTING IN BED AT THIS TIME WITH CALL LIGHT IN REACH. WILL CONTINUE TO MONITOR.
[2019-08-07 19:50] VITALS: BP 161/71
--- NOTE | 2019-08-08 05:10 | NUR ---
ASSUMED CARES AT 1920. ALERT AND ORIENTED. C/O PAIN TO RIGHT HIP. WBAT RLE. PAIN MEDS GIVEN. MAX ASSIST X 2 PERSON FOR SAFETY. UP TO BSC. NURSING ASSISTED WITH CARES. MEPLIEX TO RIGHT ELBOW CHANGED. PT STATES THIS IS SKIN TEAR FROM FALL AT HOME. DRESSING TO RIGHT HIP INTACT. SLEPT MOST OF THE NIGHT.
[2019-08-08 08:00] VITALS: BP 198/85
--- NOTE | 2019-08-08 10:28 | NUR ---
SW called pt dtr in preparation for team conference today. Pt dtr pleased with pt having the opportunity to be on inpt rehab unit to gain strength prior to dc home. SW to continue to follow to assist with safe dc planning.
--- NOTE | 2019-08-08 16:02 | NUR ---
AM ASSESSMENT AND VITAL SIGNS COMPLETED DOCUMENTED. PRN PAIN MEDICATION GIVEN TWICE THIS SHIFT FOR C/O RIGHT HIP PAIN. PT IS MOD ASSIST WITH BED MOBILITY AND TRANSFERS, REQUIRES EXTRA TIME WITH ALL ACTIVITIES. PT WORKED WITH THERAPIES BUT STILL WANTS TO GO TO BED BETWEEN THERAPIES. FALL PRECAUTIONS AND HOURLY ROUNDING CONTINUE.
[2019-08-08 20:00] VITALS: BP 152/59
--- NOTE | 2019-08-08 21:30 | NUR ---
AWAKENED FOR REASSESSMENT AND MEDICATIONS PASS. PAIN MEDICATION GIVEN FOR COMPLAINT OF RIGHT HIP PAIN RATED "4". TOOK MEDICATIONS WHOLE ONE AT A TIME WITH ICE TEA. CALL LIGHT WITHIN REACH.
--- NOTE | 2019-08-09 05:24 | NUR ---
RESTED QUIETLY. TURNS SELF IN BED. HOURLY ROUNDING IN PROGRESS.
[2019-08-09 07:35] VITALS: BP 161/71
--- NOTE | 2019-08-09 11:33 | NUR ---
SW called pt dtr Rox to review team conference summary and plan for pt to remain on rehab unit another week with team to reassess pt length of stay during team conference on Tuesday. Pt dtr in agreement with plan. SW discussed options for pt to have more assistance at dc if needed and pt dtr explained that [facility] is residential care facility with 24 beds and one medication aid available with day staff. Pt would have to hire more care if needed and pt is on limited budget. SW to continue to follow to assist with safe dc planning.
--- NOTE | 2019-08-09 16:25 | NUR ---
ASSUMMED CARE OF PT AT 0730, PT ALERT, TRANSFERS WITH MIN ASSIST GB WALKER, SLOW TO MOVE, TAKING FOOD AND FLUIDS WELL, DRESSING TO RIGHT HIP INTACT, C/O RIGHT HIP AND THIGH PAIN, MEDICATED PER ORDER, TAKES PILLS WHOLE 1 AT A TIME, VOIDS LARGE AMOUNT PER COMMODE AND IS INCONTINENT AT TIMES, PARTICIPATED IN ALL THERAPIES, HOURLY ROUNDING COMPLETED, ASSESSMENT COMPLETE, WILL COTNINUE TO MONITOR.
[2019-08-09 20:25] VITALS: BP 129/82
--- NOTE | 2019-08-10 05:02 | NUR ---
PT A&O, VSS ON RA. MEDS GIVEN ORDERED. PAIN MANAGED WITH OXY IR. PT UP WITH 1 TO BSC. DRESSING TO RT HIP C/D/I. BENEDRYL GIVEN PER PT REQUEST FOR ITCHING. PT SLEEPING THROUGH THE NIGHT. WILL CONTINUE TO MOMITOR.
[2019-08-10 05:11] LABS: ABSOLUTE BASOPHILS 0.1 thou/uL (0.0-0.2); ABSOLUTE EOSINOPHILS 0.1 thou/uL (0.0-0.7); ABSOLUTE LYMPHOCYTES 2.2 thou/uL (0.8-5.3); ABSOLUTE MONOCYTES 0.7 thou/uL (0.0-1.2); ABSOLUTE NEUTROPHILS 4.6 thou/uL (1.6-8.1); EOSINOPHILS 1.1 %; HEMATOCRIT 25.2 % (37.0-47.0); HEMOGLOBIN 8.2 gm/dL (12.0-15.0); LYMPHOCYTES 28.7 %; MCH 23.6 pg (26.0-34.0); MCHC 32.6 g/dL (28.0-37.0); MCV 72.5 fL (80.0-100.0); MONOCYTES 8.8 %; MPV 6.4 fl. (7.2-11.1); NUCLEATED RBCS 0 /100WBC; PLATELET COUNT* 627 thou/uL (150-400); POLYS 60.4 %; RBC 3.47 mil/uL (4.20-5.00); RDW-CV 18.5 % (10.5-14.5); WBC 7.7 thou/uL (4.0-11.0)
[2019-08-10 05:24] LABS: % SATURATION 7 % (20-39); IRON 20 ug/dL (50-175)
[2019-08-10 05:37] LABS: CALCIUM 8.7 mg/dL (8.5-10.1); CREATININE 1.1 mg/dL (0.6-1.3); PHOSPHORUS* 3.3 mg/dL (2.5-4.9); POTASSIUM 4.2 mmol/L (3.5-5.1)
[2019-08-10 07:56] VITALS: BP 158/84
--- NOTE | 2019-08-10 16:59 | NUR ---
ASSUMMED CARE OF PT AT 0730, PT ALERT AND ORIENTED, PT TRANSFERS WITH ASSIST OF 1, GB WALKER CUEING AND MUCH ENCOURAGEMENT, WANTS ASSIST WITH ALL CARES, PT CONTINUOUSLY EDUCATED ON DOING TASKS FOR HERSELF BUT STATES SHE CAN'T, PT INCONTINENT THIS AM BUT VOIDS PER COMMODE THIS PM, PT C/O PAIN IN RIGHT HIP, MEDICATED PER ORDER, APETITE DECREASED, TAKING FLUIDS WELL, SALINE LOCK STARTED FOR IRON INFUSION, HIP DRESSING INTACT,MEPILEX TO RIGHT ELBOW INTACT, PARTICIPATED IN ALL THERAPIES, HOURLY ROUNDING COMPLETED, ASSESSMENT COMPLETE, WILL CONTINUE TO MONITOR.
[2019-08-10 20:09] VITALS: BP 139/65
[2019-08-11 04:30] LABS: HEMATOCRIT 25.1 % (37.0-47.0); HEMOGLOBIN 8.2 gm/dL (12.0-15.0); MCH 23.5 pg (26.0-34.0); MCHC 32.6 g/dL (28.0-37.0); MCV 72.2 fL (80.0-100.0); RBC 3.48 mil/uL (4.20-5.00); RDW-CV 18.4 % (10.5-14.5); WBC 7.2 thou/uL (4.0-11.0)
--- NOTE | 2019-08-11 05:11 | NUR ---
PATIENT SLEPT WELL DURING THIS SHIFT. PT ASSISTED WITH TURNS Q2H PER PROTOCAL BUT REFUSED SOME. PT DENIES PAIN. DSG ON RT HIP INTACT. FREQUENTLY USED ITEMS AND CALL LIGHT WITHIN REACH. SIDERAILS UPX3 AND BED ALARM ON. WILL CONTINUE TO MONITOR.
[2019-08-11 09:00] VITALS: BP 151/74
--- NOTE | 2019-08-11 16:50 | NUR ---
ALERT AND ORIENTED X4. UP WITH 1 ASSIST, GAIT BELT AND WALKER. HAS DRY DRESSING OVER RIGHT HIP INCISION AND RIGHT ELBOW SKIN TEAR. INCONTINENT OF URINE TODAY. IV INFILTRATED AT END OF IRON INFUSION. LARGE QUARTER SWELLING AND BRUISE NOTED. DR NOTIFED. NEW IV STARTED WITHOUT DIFFICULTY RIGHT ARM. PO PAIN MEDICATION HELPFUL WITH PAIN. GIVEN MIRALAX FOR CONTSTIPATION. USES CALL LIGHT WITHIN REACH. FALL PRECAUTIONS IN PLACE. BED ALARM AND CHAIR ALARM USED.
[2019-08-11 20:29] VITALS: BP 113/62
--- NOTE | 2019-08-12 06:20 | NUR ---
PT ALERT AND ORIENTED. VSS ON RA. MEDS GIVEN PER EMAR. PT SLEPT WELL THIS SHIFT. PAIN MEDS GIVEN THIS SHIFT. RT ELBOW DRESSING C/D/I. SRUG ISLSND DRESSING TO RT HIP C/D/I. FALL PRECAUTION IN PLACE. CALL LIGHT WITHIN REACH. HOURLY ROUNDINGS MADE. WILL CONTINUE TO MONITOR.
[2019-08-12 07:45] VITALS: BP 148/67
--- NOTE | 2019-08-12 17:34 | NUR ---
ALERT AND ORIENTED X4. UP WITH 1 ASIST, GAIT BELT AND WALKER. NEEDS ENCOURAGEMENT TO STAY OUT OF BED. DRESSING CLEAN DRY AND INTACT OVER RIGHT HIP INCISION AND RIGHT ELBOW SKIN TEAR. INCONTINENT OF URINE X2 TODAY BUT CONTIENT OF BOWELS. USING PO PAIN MEDICATION TO HELP WITH BACK AND RIGHT HIP PAIN. USES CALL LIGHT WITHIN REACH. FALL PRECAUTIONS IN PLACE. BED ALARM AND CHAIR ALARM USED.
[2019-08-12 20:00] VITALS: BP 127/79
--- NOTE | 2019-08-13 05:12 | NUR ---
ASSUMED CARES AT 1920. ALERT AND ORIENTED. PLEASANT. C/O PAIN TO RIGHT HIP. PAIN MEDS GIVEN. WBAT RLE. SALINE LOCK TO RIGHT AC. MOD ASSIST WITH GAIT BELT AND WALKER. UP TO BSC. HAD URINARY INCONTINENCE WELL. SLEPT MOST OF THE NIGHT. CALL LIGHT IN REACH AND BED ALARM ON.
[2019-08-13 05:26] LABS: HEMATOCRIT 26.2 % (37.0-47.0); HEMOGLOBIN 8.5 gm/dL (12.0-15.0); MCH 23.7 pg (26.0-34.0); MCHC 32.3 g/dL (28.0-37.0); MCV 73.5 fL (80.0-100.0); MPV 6.1 fl. (7.2-11.1); RBC 3.56 mil/uL (4.20-5.00); RDW-CV 18.8 % (10.5-14.5); WBC 9.1 thou/uL (4.0-11.0)
[2019-08-13 05:42] LABS: MAGNESIUM 1.9 mg/dL (1.8-2.4); POTASSIUM 4.3 mmol/L (3.5-5.1)
[2019-08-13 08:54] VITALS: BP 174/78
--- NOTE | 2019-08-13 18:04 | NUR ---
ALERT AND ORIENTED X4. UP WITH 1 ASSIST, GAIT BELT AND WALKER. USING PO PAIN MEDICATION TO HELP WITH RIGHT HIP PAIN. DR CHANGED DRESSING TODAY ON RIGHT HIP TODAY. CONTINENT OF BLADDER TODAY. FALL PRECAUTIONS IN PLACE. BED ALARM AND CHAIR ALARM USED. USES CALL LIGHT WITHIN REACH.
[2019-08-13 19:15] VITALS: BP 131/54
--- NOTE | 2019-08-14 06:15 | NUR ---
PATIENT HAS SLEPT WELL THROUGHOUT THE NIGHT. VSS ON RA. MEDICATIONS GIVEN ORDERED AND CHARTED. DRESSING TO RIGHT HIP IS C/D/I. PATIENT HAS BEEN INCONTINENT OR URINE AND DENYS CARE PERFORMED. BED LINEN CHANGED THIS AM. PATIENT IS UP WITH ASSIST X 1 TO THE BSC. IV IN RIGHT AC-SL. FALL PRECAUTIONS IN PLACE AND HOURLY ROUNDS MADE. WILL CONTINUE WITH PLAN OF CARE AND THERAPIES. NURSING TO CONTINUE MONITORING.
[2019-08-14 08:00] VITALS: BP 143/68
--- NOTE | 2019-08-14 16:05 | NUR ---
ASSUMMED CARE OF PT AT 0730, PT ALERT AND ORIENTED, PT C/O PAIN IN RIGHT HIP, MEDICATED PER ORDER, DRESSING TO INCISION C/D/I, PT C/O NAUSEA AT LUNCH TIME, PT HAS HAD NO BM X 4 DAYS, BOWEL MEDICATION OFFERED AND PT REFUSED, EDUCATED PT AND SHE DID AGREE TO TAKE A SUPPOSITORY, GIVEN AND AWAITING RESULTS. PT AMBULATED TO TOILET TO VOID X 1 AND ALSO USED COMMODE X 1, BRIEF DRY THIS SHIFT, SALINE LOCK TO RIGHT AC, PARTICIPATED IN ALL THERAPIES, HOURLY ROUNDING COMPLETED, ASSESSMENT COMPLETE, WILL CONTINUE TO MONITOR.
[2019-08-14 19:15] VITALS: BP 145/67
--- NOTE | 2019-08-15 07:05 | NUR ---
PATIENT HAS SLEPT WELL THROUGHOUT MOST OF THE NIGHT. VSS ON RA. PAIN WELL CONTROLLED. MEDICATIONS GIVEN 0RDERED AND CHARTED. PATIENT UP WITH ASSIST X 1 WITH GAITBELT AND WALKER TO THE [facility]. DRESSING TO RIGHT HIP IS C/D/I. PATIENT WAS INCONTINENT OF BLADDER AND DENYS CARE PERFORMED AND BED LINEN CHANGED. FALL PRECAUTIONS IN PLACE AND HOURLY ROUNDS MADE. WILL CONTINUE WITH PLAN OF CARE, THERAPIES AND NURSING TO CONTINUE MONITORING.
[2019-08-15 08:00] VITALS: BP 183/75
[2019-08-15 09:33] VITALS: BP 183/75
--- NOTE | 2019-08-15 12:45 | NUR ---
Nutrition: Pt is not eating well. She said she just doesn't have an appetite. Noted she ate <25% on her lunch tray. She doesn't like the Ensure. She agreed to try Ensure Clear [place] instead - RD ordered this. Possible 5# wt loss this week. Will continue to follow weekly. Mild to moderate risk.
--- NOTE | 2019-08-15 17:00 | NUR ---
TR called pt dtr Rox to review team conference summary and plan for pt to dc home on Saturday 08/19 to [facility] with assistance and HH services to follow. Pt dtr in agreement with plan. SW to continue to follow to assist with safe dc planning.
[2019-08-15 19:00] VITALS: BP 143/69
--- NOTE | 2019-08-16 06:21 | NUR ---
PT SLEPT WELL THIS SHIFT. MEDS GIVEN PER EMAR. NO BM NOTED THIS SHIFT. NO INCONTINENCE NOTED THIS SHIFT. FALL PRECAUTION IN PLACE. CALL LIGHT WITHIN REACH. HOURLY ROUNDINGS MADE. WILL CONTINUE TO MONITOR.
[2019-08-16 08:00] VITALS: BP 154/74
--- NOTE | 2019-08-16 18:43 | NUR ---
AM ASSESSMENT AND VITAL SIGNS COMPLETED DOCUMENTED. PT CONTINUES TO WORK WITH ALL THERAPIES AND IS PROGRESSING TOWARD DISCHARGE GOALS. DRESSING TO RIGHT HIP C/D/I. PAIN MEDICATION GIVEN TWICE THIS SHIFT. FALL PRECAUTIONS AND HOURLY ROUNDING CONTINUE.
[2019-08-16 20:00] VITALS: BP 172/87
--- NOTE | 2019-08-17 06:37 | NUR ---
PT ALERT AND ORIENTED. VSS ON RA. MEDS GIVEN PER EMAR. PAIN GIVEN THIS SHIFT. SOME BLADDER INCONTINENCE NOTED THIS SHIFT. PT SLEPT WELL THIS SHIFT. FALL PRECAUTION IN PLACE. CALL LIGHT WITHIN REACH. HOURLY ROUNDINGS MADE. WILL CONTINUE TO MONITOR.
[2019-08-17 07:00] VITALS: BP 165/69
--- NOTE | 2019-08-17 14:29 | NUR ---
RECEIVED REPORT FROM MNOTANARN AT 1230. PATIENT IN BED WORKING WITH THERAPY. CALL LIGHT IN REACH.
--- NOTE | 2019-08-17 18:55 | NUR ---
PATIENT A&OX4. PATIENT UP X1 ASSIST. INCONTINENT OF B/B BUT AMBULATED TO BATHROOM TODAY WITH WALKER GAIT BELT AND X1 ASSIST. LAST BM 08/15. PATIENT TO BE DISCHARGING TUESDAY.
[2019-08-17 19:40] VITALS: BP 126/63
--- NOTE | 2019-08-18 05:28 | NUR ---
ASSUMED CARES AT 1920. ALERT AND ORIENTED PLEASANT. DRSG TO RIGHT HIP INTACT. MIN ASSIST WITH GAIT BELT AND WALKER. URINARY INCONTINENCE. PULLUPS. SLEPT WELL. CALL LIGHT IN REACH AND BED ALARM ON.
[2019-08-18 07:00] VITALS: BP 153/70
[2019-08-18 20:00] VITALS: BP 115/61
[2019-08-19 07:30] VITALS: BP 168/66
[2019-08-19] MEDS ORDERED: ACETAMINOPHEN500 M1 PO (09:22)
[2019-08-19] MEDS ORDERED: VITAMIN D21250 MC1 PO (09:22)
[2019-08-19] MEDS ORDERED: IRON325 PO (09:26)
[2019-08-19 19:00] VITALS: BP 129/62
--- NOTE | 2019-08-20 05:22 | NUR ---
PATIENT HAS SLEPT WELL THROUGHOUT THE NIGHT. VSS ON RA. PAIN WELL CONTROLLED. MEDICATIONS GIVEN ORDERED AND CHARTED. ASSESSMENT CHARTED. DRESSING TO RIGHT HIP IS C/D/I. FALL PRECAUTIONS IN PLACE AND HOURLY ROUNDS MADE. WILL CONTINUE WITH THERAPIES AND NURSING TO MONITOR.
[2019-08-20 07:56] VITALS: BP 160/77
[2019-08-20 10:52] VITALS: BP 160/77
[2019-08-20 15:35] VITALS: BP 160/77
--- NOTE | 2019-08-20 15:38 | NUR ---
Pt to dc home today to [facility] with some assistance, family to check on pt and HH services to follow. SW spoke with pt over the phone and with pt dtr over the phone about HH agencies and pt/family did not have preference but chose [facility]; SW faxed referral and orders to HH intake. Pt dtr to provide pt ride home; pt dtr has a car after pt dtr is off from work. Pt dtr phone [phone] or work [phone]
[2019-08-20 15:42] VITALS: BP 160/77
--- NOTE | 2019-08-20 18:56 | NUR ---
ASSUMED CARE AT 0730. ALERT ORIENTED PLEASANT COOPERATIVE. HX OF RT. HIP FX. WBATRLE. PARTICIPATING IN THERAPIES USES CALL LIGHT APPROPRIATELY. MEDICATED X 1 FOR C/O RT. HIP PAIN BEFORE THERAPIES STARTED THIS A.M. TRANSFERS WITH 1 ASSIST G BELT AND WALKER FROM RECLINER TO BED. WENT OVER D/C PLANS WITH PT. VERBALIZED UNDERSTANDING ALLOWED TIME FOR QUESTIONS. SCRIPT GIVEN TO PT. AND SCRIPT CALLED TO [facility] FOR PREDNISONE PER REQUEST. DISCHARGED AT 1830 PER W/C TO HOME WITH BELONGINGS GAVE PRN MED FOR PAIN BEFORE D/C.DAUGHTER IN LAW PICKED UP PT. PER PRIVATE CAR.
--- NOTE | 2019-08-20 19:05 | NUR ---
HOURLY ROUNDING COMPLETED.
[2019-08-20 19:27] VITALS: BP 160/77
== END 2019-08-20 18:30 | disposition home health service (06) | DRG 535 ==
LOC: M.REH 13:40
PROVIDERS: Family Medicine; Internal Medicine; ADMIT Physical Medicine & Rehabilitation
DX: S72.001A Fracture of unspecified part of neck of right femur, initial encounter for closed fracture (principal); E43 Unspecified severe protein-calorie malnutrition; D62 Acute posthemorrhagic anemia; Z68.1 Body mass index [BMI] 19.9 or less, adult; M06.9 Rheumatoid arthritis, unspecified; M79.7 Fibromyalgia; W18.30XA Fall on same level, unspecified, initial encounter; D50.9 Iron deficiency anemia, unspecified; K59.03 Drug induced constipation; T40.605A Adverse effect of unspecified narcotics, initial encounter; Y92.89 Other specified places as the place of occurrence of the external cause; Z79.82 Long term (current) use of aspirin; Z79.899 Other long term (current) drug therapy

== ENCOUNTER 2019-08-22 20:22 | Inpatient (IN) | payer MEDICARE ==
[~2019-08-22] VITALS: Ht 152.4 cm; Wt 42.2 kg
[~2019-08-22 20:22] MED LIST changes: +ACETAMINOPHEN500 M1 PO; +ELIQUIS2.5 MG PO; +IRON325 PO
[2019-08-22 20:25] VITALS: BP 199/81
[2019-08-22 22:57] LABS: ABSOLUTE BASOPHILS 0.1 thou/uL (0.0-0.2); ABSOLUTE LYMPHOCYTES 1.1 thou/uL (0.8-5.3); ABSOLUTE MONOCYTES 0.9 thou/uL (0.0-1.2); ABSOLUTE NEUTROPHILS 9.6 thou/uL (1.6-8.1); BASOPHILS 0.5 %; HEMATOCRIT 32.5 % (37.0-47.0); HEMOGLOBIN 10.5 gm/dL (12.0-15.0); LYMPHOCYTES 9.8 %; MCH 24.8 pg (26.0-34.0); MCHC 32.2 g/dL (28.0-37.0); MCV 77.2 fL (80.0-100.0); MONOCYTES 7.4 %; NUCLEATED RBCS 0 /100WBC; PLATELET COUNT* 432 thou/uL (150-400); POLYS 82.3 %; RBC 4.21 mil/uL (4.20-5.00); RDW-CV 24.8 % (10.5-14.5); WBC 11.7 thou/uL (4.0-11.0)
[2019-08-22 22:59] LABS: CALCIUM 9.1 mg/dL (8.5-10.1); CREATININE 1.1 mg/dL (0.6-1.3)
[2019-08-23 00:27] VITALS: BP 141/61
[2019-08-23 00:40] VITALS: BP 148/68
[2019-08-23 03:21] LABS: ANISOCYTOSIS 1+; HYPOCHROMASIA 1+; POIKILOCYTOSIS 1+
[2019-08-23 03:22] LABS: SCHISTOCYTES Occasional
[2019-08-23 03:23] LABS: MACROCYTES Occasional; OVALOCYTES 1+
[2019-08-23 08:00] VITALS: BP 149/70
[2019-08-23 16:10] VITALS: BP 148/70
[2019-08-23 19:40] VITALS: BP 137/63
[2019-08-24] VITALS: BP 147/61
[2019-08-24 08:00] VITALS: BP 125/63
[2019-08-24 14:30] VITALS: BP 125/63
== END 2019-08-24 15:07 | DRG 560 ==
LOC: M.ERS 20:22 → M.TBA-ER 23:06 → M.2W 23:06
PROVIDERS: Personal Emergency Response Attendant; ADMIT Internal Medicine
PROC: 0QS6XZZ Reposition Right Upper Femur, External Approach (ICD-10-PCS; principal; 2019-08-22)
DX: T84.020A Dislocation of internal right hip prosthesis, initial encounter (principal); E46 Unspecified protein-calorie malnutrition; Z68.1 Body mass index [BMI] 19.9 or less, adult; M06.9 Rheumatoid arthritis, unspecified; M79.7 Fibromyalgia; Y83.8 Other surgical procedures as the cause of abnormal reaction of the patient, or of later complication, without mention of misadventure at the time of the procedure; Y82.8 Other medical devices associated with adverse incidents; Z96.649 Presence of unspecified artificial hip joint; K21.9 Gastro-esophageal reflux disease without esophagitis; M81.0 Age-related osteoporosis without current pathological fracture; E55.9 Vitamin D deficiency, unspecified; Y92.89 Other specified places as the place of occurrence of the external cause; Z79.899 Other long term (current) drug therapy; Z79.891 Long term (current) use of opiate analgesic

== ENCOUNTER 2019-09-06 17:27 | Inpatient (IN) | payer MEDICARE ==
[~2019-09-06] VITALS: Ht 152.4 cm; Wt 43.5 kg
[~2019-09-06 17:27] MED LIST changes: +ENOXAPARIN40 MG/0.1 SUBQ; +FELODIPINE 5 MG5 M1 PO; +MELATONIN5 M1 PO; +NORCO 5-325 TA1 EAC1 PO
[2019-09-06 17:29] VITALS: BP 147/58
--- NOTE | 2019-09-06 18:15 | NUR ---
DR. RASCON EXPLAINED PROCEDURE OF CLOSED HIP REDUCTION TO PATIENT, RISKS AND BENIFITS OF PROCEDURE WENT OVER WITH PATIENT. PATIENT GAVE VERBAL CONSENT TO PROCEDURE TO DR. RASCON, HIEN RN, AND LEANA SORIA, DUE TO PATIET UNABLE TO SIGN CONSENT.
[2019-09-06 18:35] LABS: HEMATOCRIT 33.6 % (37.0-47.0); MCH 26.5 pg (26.0-34.0); MCHC 32.7 g/dL (28.0-37.0); MCV 81.2 fL (80.0-100.0); MPV 6.3 fl. (7.2-11.1); NUCLEATED RBCS 0 /100WBC; PLATELET COUNT* 456 thou/uL (150-400); RBC 4.14 mil/uL (4.20-5.00); WBC 10.4 thou/uL (4.0-11.0)
[2019-09-06 18:45] LABS: CALCIUM 9.2 mg/dL (8.5-10.1); CREATININE 0.9 mg/dL (0.6-1.3); POTASSIUM 3.7 mmol/L (3.5-5.1)
[2019-09-06 18:49] LABS: ALBUMIN 2.8 g/dL (3.4-5.0); TOTAL BILIRUBIN 0.5 mg/dL (<0.1-1.0); TOTAL PROTEIN 6.6 g/dL (6.4-8.2)
[2019-09-06 18:57] LABS: ABSOLUTE EOSINOPHILS 0.1 thou/uL (0.0-0.7); ABSOLUTE LYMPHOCYTES 1.8 thou/uL (0.8-5.3); ABSOLUTE MONOCYTES 0.2 thou/uL (0.0-1.2); ABSOLUTE NEUTROPHILS 8.3 thou/uL (1.6-8.1); ANISOCYTOSIS 1+; MACROCYTES 1+; PLATELET ESTIMATE INCREASED
--- NOTE | 2019-09-06 20:44 | NUR ---
SEE CONSCIOUS SEDATION FLOW SHEET FOR PROCEDURE AND POST PROCEDURE VITAL SIGNS AND ASSESSMENTS.
[2019-09-06 20:46] VITALS: BP 137/59
[2019-09-06 21:00] VITALS: BP 128/53
--- NOTE | 2019-09-06 23:09 | NUR ---
PT ADMITTED TO RM 305 FROM ER @ 2029. ALERT AND ORIENTED. FORGETFUL. ADMISSION HX AND ASSESSMENT DOCUMENTS. ABDUCTION PILLOW IN PLACE. PT ORIENTED TO ROOM AND CALL LIGHT. FALL PRECAUTION IN PLACE. NEW IV TO RW WITH NS @ 100. CALL LIGHT WITHIN REACH. HOURLY ROUNDINGS MADE. WILL CONTINUE TO MONITOR.
--- NOTE | 2019-09-07 06:23 | NUR ---
PT SLEPT WELL THIS SHIFT. TURNED GENTLY THROUGH SHIFT. RW IV WITH NS @ 100. FALL PRECAUTION IN PLACE. CLEAR LIQUID DIET. WILL CONTINUE TO MONITOR.
[2019-09-07 07:20] VITALS: BP 162/63
--- NOTE | 2019-09-07 13:18 | NUR ---
Nutrition: Pt admitted wwith hip FX. Consult for poor intake. Regular diet, pt eating lunch at visit. She is at her usual wt of 96#. Alb 2.8, prealb 15.8. She stated she is eating fairly well. She refused Ensure d/t not liking them. No nutrition interventions today. RD available, encouraged pt to call with nutrition needs. Consider Mild risk at this time.
[2019-09-07 16:00] VITALS: BP 110/52
--- NOTE | 2019-09-07 16:11 | NUR ---
PATIENT GIVEN PRN HYDROCODONE X 1 THIS SHIFT FOR RIGHT HIP PAIN, GOOD RELIEF NOTED. INCONTINENT OF URINE. IV RESTARTED TO RIGHT FOREARM THIS AFTERNOON, IVF INFUSING. ABDUCTOR PILLOW IN PLACE ORDERED, PATIENT DAUGHTER TO BRING RIGHT HIP BRACE THIS EVENING. PT/OT ORDERED. THIS NURSE SPOKE WITH PATIENTS DAUGHTER BENITA, UPDATE GIVEN.
--- NOTE | 2019-09-07 17:13 | NUR ---
SW called pt dtr to complete initial assessment/reassess as pt is known to SW from previous admission and inpt rehab stay. Pt was going to [facility] SNF prior to another hip dislocation. Pt dtr said that she is anticipating a consult from Dr Zimmerman to determine if pt might be having surgery next week. Pt dtr said that if pt needed to dc prior to surgery, depending on pt functional level and safety, pt could possibly dc home to [facility] or if needed, pt could dc to [facility]. SW to continue to follow to assist with safe dc planning.
[2019-09-08] VITALS: BP 116/56
--- NOTE | 2019-09-08 05:08 | NUR ---
PATIENT SLEPT WELL DURING THIS SHIFT. PT ASSISTED WITH TURNS NEEDED. PT REQUESTED PAIN MEDICATION X1 AT HS FOR RT HIP PAIN. PT INCONTINENT OF URINE. PT WITH FLUIDS INFUSING IN RT FOREARM. FREQUENTLY USED ITEMS AND CALL LIGHT WITHIN REACH. SIDERAILS UPX3 AND BED ALARM ON. WILL CONTINUE TO MONITOR.
[2019-09-08 05:56] LABS: CALCIUM 8.7 mg/dL (8.5-10.1); CREATININE 0.9 mg/dL (0.6-1.3); MAGNESIUM 1.6 mg/dL (1.8-2.4); POTASSIUM 3.6 mmol/L (3.5-5.1)
[2019-09-08 07:53] VITALS: BP 133/70
--- NOTE | 2019-09-08 11:50 | NUR ---
PATIENT REFUSED TO ALLOW US TO OFF LOAD HER FEET. SHE DOES ALLOW US TO TURN HER MOST OF THE TIME. SHE ALSO COMPLAINS ABOUT THE ABDUCTOR PILLOW AND DOES NOT WANT TO USE IT. I EXPLAINED TO HER WHY SHE HAS TO USE IT AND HOW IT PROTECTS THE HIP FROM DISLOCATION. SHE DID AGREE TO USE IT AFTER I INFORMED HER.
[2019-09-08 16:50] VITALS: BP 122/71
--- NOTE | 2019-09-08 17:33 | NUR ---
Patient has had a good day. She has been turned and repositioned every 2 hours. Incont. care as needed. She refused her breakfast but did eat some lunch. She does not have a very good appetite. She refused therapy with the brace. She reports that the brace that she has which is a medium is to large for her and requested that we order a small. The order was sent over to roll changer. She is aert and oriented x 4.
[2019-09-08 20:00] VITALS: BP 134/59
[2019-09-09 04:00] VITALS: BP 130/64
[2019-09-09 07:50] VITALS: BP 172/67
--- NOTE | 2019-09-09 13:48 | NUR ---
PATIENT REFUSING TO WHERE BRACE THAT DAUGHTER BROUGHT IN, STATING IT IS TOO BIG. ORDER FAXED AND CALL PLACED TO ONLINE USER EXPERIENCE STRATEGIST ABOUT A SMALLER BRACE.
[2019-09-09 16:23] VITALS: BP 143/60
--- NOTE | 2019-09-09 17:25 | NUR ---
PATIENT RESTING IN BED. PATIENT HAD COMPLAINTS OF BACK PAIN THIS AM TREATED WITH HYDROCODONE. PATIENT HAS HAD GOOD APPETITE TODAY. TANBARK PEELER NOTIFIED OF NEED FOR SMALLER BRACE AND STATED IT IS A SPECIAL ORDER AND IS IN PROCESS. PATIENT HAS BEEN TURNED IN BED. PATIENT HAS BEEN INCONTINENT OF URINE AND CHANGED NEEDED. PATIENT DENIES ANY NEEDS AT THIS TIME. CALL LIGHT WITHIN REACH.
[2019-09-09 19:38] VITALS: BP 148/68
[2019-09-10 08:10] VITALS: BP 153/80
[2019-09-10 16:30] VITALS: BP 149/66
--- NOTE | 2019-09-10 16:30 | NUR ---
Patient has bee resting alot today. She has been turned every 2 hours and we did off load her heels today and she did not refuse. She is incont. of bowel and bladder and we have provided incontinent care as needed. We did call [facility] to see if patient happened to have a small brace there instead of the med. one that her family brought here but they did not have one in her room. She continues to have a poor appetite.
[2019-09-10 20:00] VITALS: BP 134/67
--- NOTE | 2019-09-11 05:55 | NUR ---
PATIENT SLEPT MOST OF THE NIGHT. IV FLUIDS CONTINUE TO INFUSE ORDERED. PATIENT WAS GIVEN A PAIN PILL ONCE. PATIENT COULD POSSIBLY BE DISCHARGED TODAY OR TOMORROW. WILL CONTINUE TO MONITOR.
[2019-09-11 07:30] VITALS: BP 170/79
--- NOTE | 2019-09-11 14:59 | NUR ---
DC pending proper brace then possible need for SNF. SW faxed referral and update information to admissions at [facility]. SW to continue to follow to assist with finalizing safe dc plan.
[2019-09-11 16:00] VITALS: BP 142/62
--- NOTE | 2019-09-11 17:22 | NUR ---
PT A&OX4 VSS. PT ADMITTED FROM ER R/T HIP DISLOCATION. PT CURRENTLY WAITING FOR ABDUCTOR BRACE FROM [facility]. REP (ROBERTO) FROM [facility] STA IT SHOULD ARRIVE TUESDAY OR POSSIBLY TUESDAY. PT REMAINS INCONTINENT OF B/B. IV TO R HAND PATENT, DRESSING C/D/I. NS RUNNING AT 100ML/HR. PRN HYDROCODONE GIVEN THIS SHIFT REQUESTED. PT REMAINS ON BEDREST AWAITING BRACE TO BE DELIVERED. WEDGE IN PLACE WHEN IN BED. PT RESTS IN BED W/ CALL LIGHT IN REACH. WILL CONTINUE TO MONITOR.
[2019-09-11 20:00] VITALS: BP 149/68
--- NOTE | 2019-09-12 04:57 | NUR ---
PT A&O, VSS ON RA. MEDS GIVEN ORDERED. NORCO GIVEN X1 PER PT REQUEST. WEDGE, PUREWICK IN PLACE. PT SLEEPING THROUGH THE NIGHT. CALL LIGHT WITHIN REACH. NO OTHER CONCERNS AT THIS TIME. WILL CONTINUE TO MONITOR.
[2019-09-12 08:15] VITALS: BP 158/80
--- NOTE | 2019-09-12 11:14 | NUR ---
Patient is in frequent contact with her family to update them on any new details.
[2019-09-12] MEDS ORDERED: GENTLE LAXATIVE5 M1 PO (12:39)
[2019-09-12] MEDS ORDERED: BENADRYL25 MG PO (12:40)
[2019-09-12] MEDS ORDERED: MYLANTA MAXIMU355 ML PO (12:41)
[2019-09-12] MEDS ORDERED: PROMETHAZINE PO (12:42)
[2019-09-12] MEDS ORDERED: ONDANSETRON HCL4 M2 PO (12:43)
[2019-09-12 12:45] VITALS: BP 158/80
--- NOTE | 2019-09-12 14:21 | NUR ---
Staff here from [facility] to see if the new brace is the right size. We placed patient in the brace and it does fit. Patient complaining that the brace is to tight and we loosened it as far as we could. She is not happy about having to wear it but I talked with her about it and reassured her. She is fine with it for now. We did notify PT that she was in the brace so that they could come work with patient.
--- NOTE | 2019-09-12 14:39 | NUR ---
Patient keeps calling me to her room to take the brace off. I explained to her that she has to keep the brace on for now because Physical Therapy is on their way over here to work with her. She is trying to get me to put the old brace on her that she has been refusing to wear for the past week. I explained to her that this brace fits better than the old one that it was to large. She is not happy about the brace but is tolerating it for now. I did talk with her a little about the fact that she will have to wear the brace off and on every day when she goes back to the [place]. She states, "This brace is way too tight and it's not comfortable." The man from [facility] that brought the brace over told us that it can not be any looser than it is now or it will not hold her hip in place properly. Patient is aware of this.
--- NOTE | 2019-09-12 15:28 | NUR ---
Patients son called to let us know that his Mother called him and complained that the brace is to tight and that we are being mean to her and not making it looser. I explained to him that the brace is not tight and if we loosen it any more that it will not protect the hip. I did let him know that I would go back in and recheck it with physical therapy. PT is here now.
--- NOTE | 2019-09-12 15:53 | NUR ---
Pt to dc to SNF today as she has now received her brace for her hip and worked with PT. TR faxed orders/med list to admissions at [facility] who had accepted pt for SNF and spoke with Alpesh who arranged for transportation around 6 to 7 pm. TR called pt dtr and informed of dc plan; pt and pt dtr in agreement with plan. Pt nurse aware and chart copied for continuation of care. [facility] [phone]
[2019-09-12 16:49] VITALS: BP 140/72
--- NOTE | 2019-09-12 16:57 | NUR ---
Patient up in the chair at this time with her brace in place. She is watching tv and waiting for her supper to arrive. She is going to be transfer to [facility] between 6pm and 7pm. She is aware of this. Will call report to the facility later on today.
--- NOTE | 2019-09-12 17:58 | NUR ---
Tried to call report to [facility] at 1730 but they were busy and will call me back,.
--- NOTE | 2019-09-12 18:03 | NUR ---
I called report to Darrell at [facility]. Patients IV was removed with cannula intact. All personal belongings were sent with patient. She was transferred via wheelchair in a wheelchair van. Her brace was in place to the right hip as ordered.
== END 2019-09-12 18:00 | DRG 559 ==
LOC: M.ERS 17:27 → M.3W 18:44 → M.TBA-ER 18:44 → M.3W 20:30
PROVIDERS: Emergency Medicine; ADMIT Internal Medicine
PROC: 2W3LX3Z Immobilization of Right Lower Extremity using Brace (ICD-10-PCS; principal; 2019-09-06)
PROC: 0QS6XZZ Reposition Right Upper Femur, External Approach (ICD-10-PCS; principal; 2019-09-06)
DX: T84.020A Dislocation of internal right hip prosthesis, initial encounter (principal); E43 Unspecified severe protein-calorie malnutrition; Z68.1 Body mass index [BMI] 19.9 or less, adult; D62 Acute posthemorrhagic anemia; M06.9 Rheumatoid arthritis, unspecified; M79.7 Fibromyalgia; M81.0 Age-related osteoporosis without current pathological fracture; E55.9 Vitamin D deficiency, unspecified; K59.00 Constipation, unspecified; I73.9 Peripheral vascular disease, unspecified; G47.00 Insomnia, unspecified; K21.0 Gastro-esophageal reflux disease with esophagitis; Z96.641 Presence of right artificial hip joint; X50.9XXA Other and unspecified overexertion or strenuous movements or postures, initial encounter; Z98.891 History of uterine scar from previous surgery; Z79.82 Long term (current) use of aspirin; Z79.899 Other long term (current) drug therapy

== ENCOUNTER 2019-09-17 11:45 | Inpatient (IN) | payer MEDICARE ==
[~2019-09-17] VITALS: Ht 154.9 cm; Wt 43.5 kg
--- NOTE | ~2019-09-17 | OP ---
[address] [address] OPERATIVE REPORT Name: LIZ BUENO Room: [address] IN M.R.#: [id number] Admission: 09/17/19 Attend Phys: Rodrick Dinh MD Discharge: Date of : 48 Report #: [id number] THIS REPORT FOR: //name// cc: STEFANIA Kraus family physician/PCP STEFANIA - Nayana family physician/PCP ~ THIS REPORT FOR: //name// CC: STEFANIA physician/PCP Rodrick Dinh DICTATED BY: Alcides Cash DO DATE OF SERVICE: 09/18/2019 PREOPERATIVE DIAGNOSIS: Chronic instability, right prabhjot-hip arthroplasty. POSTOPERATIVE DIAGNOSIS: Chronic instability, right prabhjot-hip arthroplasty. SURGEON: Loyd garcia DO TIME CLOCK REPAIRER: Alcides Cash DO SECOND HOME APPRAISER: Mayur Sanford DO THIRD HOME APPRAISER: Alcides Braxton DO OPERATION PERFORMED: Conversion of right prabhjot-hip arthroplasty to total hip arthroplasty. IMPLANTS: A size 50 mm RingLoc acetabular shell, a 36 mm +5 Henderson constrained liner, and a 36 mm standard neck constrained modular head. Then, two 20 mm 6.5 self-tapping bone screws. ANESTHESIA: General. ESTIMATED BLOOD LOSS: 200 mL. SPECIMENS: None. DRAINS: None. ANTIBIOTICS: 2 g of Ancef given IV 30 minutes prior to incision. COMPLICATIONS: None. CONDITION: Stable to PACU. [address] [address] OPERATIVE REPORT Name: LIZ BUENO Room: [address] IN ..#: [id number] Admission: 09/17/19 Attend Phys: Rodrick Dinh MD Discharge: Date of : 48 Report #: [id number] DISPOSITION: PACU to Med/Surg floor. INDICATION FOR PROCEDURE: The patient is a pleasant 69-year-old female who is known to our practice as she had sustained a right femoral neck fracture and subsequently underwent a right prabhjot-hip arthroplasty. She subsequently had 3 instability events since then and therefore was recommended to undergo conversion of her right prabhjot- hip arthroplasty to a total hip arthroplasty as she did demonstrate a significantly shallow acetabulum that was thought to be contributing to her instability events. Therefore, the risks, benefits, treatment options, alternatives, and indications were discussed with the patient. Risks include but not limited to damage to surrounding neurovascular structures, continued pain, continued bleeding, need for repeat surgery, wound dehiscence, infection, iatrogenic fracture of the acetabulum, DVT, PE, as well as inherent complications of anesthesia. The patient understands the risks and wished to proceed with surgery. DESCRIPTION OF PROCEDURE: The patient was seen in the preoperative holding area where the right lower extremity was marked and initialed and consent was obtained and signed. She was transferred back to the operative suite and placed supine on the operating room table. She was given the benefit of general endotracheal anesthetic and then placed in the left lateral decubitus position. All bony prominences were then well padded and the patient was secured with pegboard and seatbelt. Right lower extremity was then sterilely prepped with a Hibiclens scrub followed by alcohol rinse and then ChloraPrep x 2 and then draped free in normal sterile fashion. Timeout was then had indicating appropriate patient, procedure to be performed, operative site, operative surgeon, and preoperative antibiotics as well as all relevant imaging was displayed. All in attendance were in agreeance. Next, surgery began with an incision of the skin and subcutaneous tissues utilizing a 10 blade scalpel in a curvilinear fashion approximately 5 cm proximal to the greater trochanter, extended over the anterior one-third half of the femur in line with the old scar incision. Dissection was then carried through skin and subcutaneous tissues to the level of the IT band. The previous area of repair was identified and IT band was split sharply utilizing a new 10 blade scalpel and then also IT band adhesions were then removed with blunt finger dissection. IT band was then incised proximally and distally utilizing curved Coats scissors, at which time the gluteus were then visualized. There appeared to be the probably one inferior quarter of the gluteus repair, did appear to be intact; however, the central areas demonstrated a large tear with retraction of the gluteus medius tendon and more proximally there were some fibers still intact; however, not as robust as the inferior gluteus tendon. Therefore, repeat gluteus tenotomy was made and the remaining capsule was taken in one unified layer with the gluteus tendon. Next, the hip was then dislocated and the prabhjot head removed with a bone tamp. Next, stem was then placed just posterior to the acetabulum and protected throughout the entirety of the procedure. Next, [place] [address] OPERATIVE REPORT Name: LIZ BUENO Room: [address] IN M.R.#: [id number] Admission: 09/17/19 Attend Phys: Rodrick Dinh MD Discharge: Date of : 48 Report #: [id number] excised from around the acetabulum as well as the labrum to allow adequate visualization of the acetabulum. Next, sequential reaming began starting at a 45 mm reamer and sequentially reamed up to a 49 mm reamer. Trial shell in acetabulum and head was then placed and appropriate images were taken, demonstrating adequate seating of the shell, appropriate version, and adequate leg lengths. Trials were then subsequently removed. Acetabulum was then thoroughly irrigated and a 50 mm RingLoc acetabular shell was implanted and malleted into appropriate depth. It was confirmed to be all the way seated. Then, two 20 mm screws were drilled to the posterior superior holes and were determined to have adequate bite. Next, the acetabulum was then thoroughly irrigated and the Henderson constrained +5 liner was then implanted and malleted until adequate locking into the locking mechanism. This was then checked with a hemostat, which was unable to dislodge the liner. Next, trial reduction of the hip with standard neck length was then attempted and x-rays were taken demonstrating appropriate length position and offset of the head and neck as well as adequate stability throughout the hip through range of motion and with shuck test. Therefore, hip was then dislocated again. Trial head and neck were removed. ____ was then thoroughly irrigated and then dried and then a final size 36 mm constrained head standard offset was then malleted onto the Mckeon taper and checked for appropriate seating. Hip was then reduced, taken through range of motion and determined to be stable. Next, the wound was then thoroughly irrigated and adductor or the gluteus medius and minimus as well as remnant of capsule were then reapproximated utilizing #5 Ethibond in xalzrt-ug-yyfsp fashion with bone tunnels, followed by #1 Vicryl ennlqp-tt-eiudz oversewing of the gluteus medius tendon. Next, the iliotibial band was approximated and closed with #1 Vicryl in cdlfpz-vk-ibaan interrupted fashion and the wound was then thoroughly irrigated again and skin was closed utilizing 2-0 Vicryl in simple inverted interrupted fashion followed by miki. Dressings of Mepilex and abduction pillow were then placed. The patient was transferred back to PACU in normal stable condition. Dr. Garcia was present for all critical aspects of the case. By: 1635 [id number] Garcia DO /christos
[~2019-09-17 11:45] MED LIST changes: +GENTLE LAXATIVE5 M1 PO; +MYLANTA MAXIMU355 ML PO; +ONDANSETRON HCL4 M2 PO; +PROMETHAZINE PO
[2019-09-17 11:48] VITALS: BP 160/65
[2019-09-17 14:59] LABS: HEMATOCRIT 37.6 % (37.0-47.0); HEMOGLOBIN 12.1 gm/dL (12.0-15.0); MCH 26.8 pg (26.0-34.0); MCHC 32.3 g/dL (28.0-37.0); MCV 82.8 fL (80.0-100.0); MPV 7.2 fl. (7.2-11.1); NUCLEATED RBCS 0 /100WBC; PLATELET COUNT* 500 thou/uL (150-400); RBC 4.54 mil/uL (4.20-5.00); RDW-CV 24.6 % (10.5-14.5); WBC 11.2 thou/uL (4.0-11.0)
[2019-09-17 15:03] LABS: CALCIUM 9.4 mg/dL (8.5-10.1); POTASSIUM 3.5 mmol/L (3.5-5.1)
[2019-09-17 15:08] LABS: ALBUMIN 3.1 g/dL (3.4-5.0); TOTAL BILIRUBIN 0.4 mg/dL (<0.1-1.0); TOTAL PROTEIN 7.4 g/dL (6.4-8.2)
[2019-09-17 15:31] LABS: ABSOLUTE LYMPHOCYTES 1.2 thou/uL (0.8-5.3); ABSOLUTE MONOCYTES 0.2 thou/uL (0.0-1.2); ABSOLUTE NEUTROPHILS 9.7 thou/uL (1.6-8.1)
[2019-09-17 15:32] LABS: PLATELET ESTIMATE INCREASED; SCHISTOCYTES 1+
[2019-09-17 15:33] LABS: MICROCYTES 1+
[2019-09-17 15:34] LABS: ANISOCYTOSIS 1+
[2019-09-17 15:42] VITALS: BP 137/61
[2019-09-17 20:00] VITALS: BP 117/91
[2019-09-18 05:14] LABS: PROTIME 10.2 Seconds (9.20-11.50)
[2019-09-18 07:55] VITALS: BP 157/70
[2019-09-18 10:36] LABS: HEMATOCRIT 32.7 % (37.0-47.0); HEMOGLOBIN 10.8 gm/dL (12.0-15.0)
[2019-09-18 18:13] VITALS: BP 117/45
[2019-09-18 20:00] VITALS: BP 109/76
[2019-09-19] VITALS: BP 120/67
[2019-09-19 03:45] VITALS: BP 167/51
[2019-09-19 07:55] VITALS: BP 169/77
[2019-09-19 08:14] LABS: HEMATOCRIT 28.7 % (37.0-47.0); HEMOGLOBIN 9.3 gm/dL (12.0-15.0)
[2019-09-19 12:00] VITALS: BP 110/53
[2019-09-19 16:00] VITALS: BP 154/74
[2019-09-19 19:17] LABS: URINE BILIRUBIN NEGATIVE (Negative); URINE BLOOD NEGATIVE (Negative); URINE CLARITY CLEAR; URINE COLOR YELLOW; URINE GLUCOSE-RANDOM NEGATIVE (Negative); URINE KETONES NEGATIVE (Negative); URINE NITRITE-REFLEX NEGATIVE (Negative); URINE PROTEIN NEGATIVE (Negative); URINE SPECIFIC GRAVITY <= 1.005 (1.005-1.030); URINE UROBILINOGEN 0.2 E.U./dl (0.2-1.0)
[2019-09-19 19:18] LABS: URINE LEUKOCYTES-REFLEX 2+ (Negative)
[2019-09-19 19:23] LABS: SQUAMOUS NONE SEEN /LPF (0-3)
[2019-09-19 19:24] LABS: CASTS None Seen /LPF (None Seen); CRYSTALS None Seen /LPF (None Seen); URINE RBC 0-2 Rare /HPF (0-2); URINE WBC-REFLEX 6-15 Few /HPF (0-5)
[2019-09-19 20:10] VITALS: BP 142/59
[2019-09-20] VITALS: BP 177/77
[2019-09-20 04:00] VITALS: BP 122/62
[2019-09-20 05:24] LABS: ABSOLUTE LYMPHOCYTES 1.3 thou/uL (0.8-5.3); ABSOLUTE MONOCYTES 0.9 thou/uL (0.0-1.2); ABSOLUTE NEUTROPHILS 7.7 thou/uL (1.6-8.1); BASOPHILS 0.5 %; EOSINOPHILS 0.1 %; HEMATOCRIT 30.1 % (37.0-47.0); LYMPHOCYTES 13.4 %; MCH 27.5 pg (26.0-34.0); MCHC 33.1 g/dL (28.0-37.0); MCV 83.1 fL (80.0-100.0); MONOCYTES 9.1 %; MPV 6.5 fl. (7.2-11.1); NUCLEATED RBCS 0 /100WBC; POLYS 76.9 %; RBC 3.62 mil/uL (4.20-5.00); RDW-CV 23.7 % (10.5-14.5)
[2019-09-20 05:25] LABS: PLATELET COUNT* 357 thou/uL (150-400)
[2019-09-20 05:32] LABS: CALCIUM 8.6 mg/dL (8.5-10.1); CREATININE 0.9 mg/dL (0.6-1.3); POTASSIUM 3.7 mmol/L (3.5-5.1)
[2019-09-20 06:04] LABS: ANISOCYTOSIS 2+
[2019-09-20 08:00] VITALS: BP 104/81
[2019-09-20 16:00] VITALS: BP 108/73
[2019-09-20] MEDS ORDERED: OXYCODONE HCL 55 MG PO (16:14)
[2019-09-20] MEDS ORDERED: OXYCONTIN10 M1 PO (16:22)
[2019-09-20] MEDS ORDERED: CEFUROXIME500 MG PO (17:07)
[2019-09-20 17:25] VITALS: BP 108/73
[2019-09-20 17:28] VITALS: BP 108/73
== END 2019-09-20 18:41 | DRG 467 ==
LOC: M.ERS 11:45 → M.ORTHSURG 13:53 → M.TBA-ER 13:53 → M.3W 13:53 → M.ORTHSURG 15:35 → M.3W 09-18 17:02
PROVIDERS: Family Medicine; Internal Medicine; Orthopaedic Surgery; ADMIT Internal Medicine
DX: T84.020A Dislocation of internal right hip prosthesis, initial encounter (principal); E44.0 Moderate protein-calorie malnutrition; N39.0 Urinary tract infection, site not specified; Z68.1 Body mass index [BMI] 19.9 or less, adult; Z96.641 Presence of right artificial hip joint; M06.9 Rheumatoid arthritis, unspecified; M81.0 Age-related osteoporosis without current pathological fracture; K21.9 Gastro-esophageal reflux disease without esophagitis; K59.00 Constipation, unspecified; I10 Essential (primary) hypertension; G89.29 Other chronic pain; Z79.899 Other long term (current) drug therapy; Y83.8 Other surgical procedures as the cause of abnormal reaction of the patient, or of later complication, without mention of misadventure at the time of the procedure; Y92.89 Other specified places as the place of occurrence of the external cause

== ENCOUNTER 2019-10-24 15:10 | Inpatient (IN) | payer MEDICARE ==
[~2019-10-24] VITALS: Ht 152.4 cm; Wt 37.2 kg
--- NOTE | ~2019-10-24 | OP ---
[address] [address] OPERATIVE REPORT Name: LIZ BUENO Room: [address] IN .R.#: [id number] Admission: 10/24/19 Attend Phys: Sunny Alicia MD Discharge: Date of : 48 Report #: [id number] THIS REPORT FOR: //name// cc: STEFANIA Kraus family physician/PCP STEFANIA Kraus family physician/PCP ~ THIS REPORT FOR: //name// CC: Sunny Alicia [facility] physician/PCP DICTATED BY: Joe Henley DO DATE OF SERVICE: 10/25/2019 PREOPERATIVE DIAGNOSIS: Right hip wound dehiscence. POSTOPERATIVE DIAGNOSIS: Right hip wound dehiscence. PROCEDURE PERFORMED: Irrigation and debridement to the level of bone, right hip with application of a negative pressure wound VAC. SURGEON: Delroy Khan DO EXECUTIVE TEAM LEADER: Joe Henley DO and Demar Akhtar DO ANESTHESIA: General. ANTIBIOTICS: The patient is receiving scheduled vancomycin. ESTIMATED BLOOD LOSS: 25 mL. SPECIMEN: Tissue for culture and fluid cultures x 2. DRAINS: One FRAN drain and wound VAC. COMPLICATIONS: None. DISPOSITION: Stable to PACU. INDICATIONS FOR PROCEDURE: The patient is a 69-year-old female who underwent revision of a right hip hemiarthroplasty to a constrained right total hip arthroplasty on 09/18/2019. She initially did well postoperatively; however, presented to the Emergency Department yesterday evening for increased wound drainage. On exam, she was noted to have dehiscence of her right hip wound. There was some surrounding erythema as well. Irrigation and debridement was recommended for the patient as well as placement of a wound VAC. [facility] [place] [id number] OPERATIVE REPORT Name: LIZ BUENO Room: [address] IN .R.#: [id number] Admission: 10/24/19 Attend Phys: Sunny Alicia MD Discharge: Date of : 48 Report #: [id number] benefits, alternatives and complications were discussed in detail with the patient and she wished to proceed. DESCRIPTION OF PROCEDURE: The patient was seen and examined in the preoperative holding area. The correct upper extremity was then marked. Written consent was obtained for the procedure. The patient was transferred to the operating room and placed supine on the operating table. She was given the benefit of general anesthesia. She was then placed into the left lateral decubitus position and well secured on the pegboard. All extremities were well padded. The right lower extremity was then prepped and draped in the usual sterile fashion. Timeout was performed to verify the correct patient, procedure and operative extremity and all were in agreement. Next, the wound was irrigated with pulsatile lavage with normal saline. All necrotic and purulent tissue was debrided with a curette and rongeur. Upon manual pressure on the wound, there was noted to be purulence coming from deep inside of the wound. This was probed and noted to go straight to the level of bone. Following the sinus tract down, there was exposed hardware. The hip joint was involved. This was once again debrided of any necrotic tissue. Tissue cultures and fluid cultures were then taken at that time. The wound was irrigated with 6 liters of normal saline with pulsatile lavage. Two grams of vancomycin powder was then inserted into the hip including into the intra-articular aspect of the right hip joint. A FRAN drain was then placed into the hip joint exiting the skin, the thigh laterally. The fascial layer was closed with one Prolene suture in an interrupted lpedaa-eq-bqexl fashion. The most proximal and distal aspects of the skin incision was closed with 2-0 nylon suture in a vertical mattress fashion. The central aspect of the incision was not able to be closed and a wound VAC was then placed. One black sponge was used for the wound VAC. Wound VAC was noted to have excellent suction. Sterile dressings were applied. The patient was then awakened from anesthesia and transferred to the PACU in stable condition. The patient tolerated the procedure well. By: 1410 [id number] Khan DO /christos
[~2019-10-24 15:10] MED LIST changes: +CEFUROXIME500 MG PO; +OXYCODONE HCL 55 MG PO; +OXYCONTIN10 M1 PO
[2019-10-24 15:35] VITALS: BP 146/80
[2019-10-24 16:49] LABS: HEMATOCRIT 33.6 % (37.0-47.0); HEMOGLOBIN 11.1 gm/dL (12.0-15.0); MCH 28.4 pg (26.0-34.0); MCHC 32.9 g/dL (28.0-37.0); MCV 86.3 fL (80.0-100.0); MPV 6.4 fl. (7.2-11.1); NUCLEATED RBCS 0 /100WBC; PLATELET COUNT* 469 thou/uL (150-400); WBC 9.6 thou/uL (4.0-11.0)
[2019-10-24 16:54] LABS: APTT 26.1 Seconds (25.0-31.3); PROTIME 10.2 Seconds (9.20-11.50)
[2019-10-24 16:56] LABS: CALCIUM 9.6 mg/dL (8.5-10.1); POTASSIUM 3.8 mmol/L (3.5-5.1)
[2019-10-24 17:01] LABS: ALBUMIN 2.5 g/dL (3.4-5.0); TOTAL BILIRUBIN 0.7 mg/dL (<0.1-1.0); TOTAL PROTEIN 6.6 g/dL (6.4-8.2)
[2019-10-24 17:49] LABS: ABSOLUTE LYMPHOCYTES 0.8 thou/uL (0.8-5.3); ABSOLUTE MONOCYTES 0.4 thou/uL (0.0-1.2); ABSOLUTE NEUTROPHILS 8.4 thou/uL (1.6-8.1); ANISOCYTOSIS 1+
[2019-10-24 17:50] LABS: MICROCYTES Occasional; PLATELET ESTIMATE ADEQUATE
[2019-10-24 18:51] VITALS: BP 140/57
[2019-10-24 22:22] VITALS: BP 163/74
--- NOTE | 2019-10-25 01:03 | NUR ---
PATIENT ADMITTED TO UNIT FROM THE ER AT APPROXIMATELY 1930. VSS ON RA. PAIN WELL CONTROLLED AT THIS TIME. PATIENT ORIENTED TO ROOM AND POLICIES. ASSESSMENT CHARTED. PATIENT REFUSED TO HAVE DRESSING TAKEN OFF RIGHT HIP D/T WOUND CARE CHANGING IT BEFORE BEING ADMITTED INTO THE ER. DRESSING IS C/D/I. ORTHO CONSULTED AND WILL BE IN TO PATIENT IN THE AM. PATIENT EDUCATED ON FALL RISKS AND VERBALIZED UNDERSTANDING. PATIENT HAS REMAINED NPO SINCE MIDNIGHT PER ORTHO DR. DAVALOS. IV IN RIGHT AC-SL. PATIENT HAS REMAINED BEDREST SINCE BEING ADMITTED. PATIENT IN CONTACT PRECAUTIONS D/T HISTORY OF MRSA. PATIENT INSTRUCTED TO USE CALL LIGHT WHEN NEEDING ASSISTANCE. HOURLY ROUNDS MADE. WILL CONTINUE WITH PLAN OF CARE AND NURSING TO MONITOR.
--- NOTE | 2019-10-25 05:05 | NUR ---
PATIENT HAS SLEPT OFF AND ON DURING THE NIGHT. VSS ON RA. PAIN MEDICATIONS GIVEN ORDERED AND CHARTED. PATIENTS IV DISLODGED THIS AM AND UNABLE TO PLACE NEW IV AFTER 2 ATTEMPTS. [employer] ARCHITECT NOTIFIED AT 0500 OF PATIENTS NEED FOR NEW IV TO BE PLACED. IV ABT IS DUE AT THIS TIME. PATIENT VERY WHINY AND COMPLAINING ALL NIGHT ABOUT THE HEAT AND THE AIR IN HER ROOM AND COMPLAINING ABOUT HER BLANKETS WANTING THEM ON AND THEN WANTING THEM OFF AND COMPLAINING ABOUT THE PILLOWS HERE BEING UNCOMFORTABLE. PATIENT NPO SINCE MIDIGHT AND HAS REMAINED ON BEDREST PER ORTHO ORDERS. PATIENT INSTRUCTED TO USE CALL LIGHT WHEN NEEDING ASSISTANCE. HOURLY ROUNDS MADE. WILL CONTINUE WITH PLAN OF CARE AND NURSING TO MONITOR.
[2019-10-25 05:46] LABS: ABSOLUTE BASOPHILS 0.1 thou/uL (0.0-0.2); ABSOLUTE LYMPHOCYTES 1.8 thou/uL (0.8-5.3); ABSOLUTE MONOCYTES 0.7 thou/uL (0.0-1.2); ABSOLUTE NEUTROPHILS 4.6 thou/uL (1.6-8.1); BASOPHILS 0.9 %; EOSINOPHILS 0.4 %; HEMATOCRIT 30.1 % (37.0-47.0); LYMPHOCYTES 24.9 %; MCH 28.6 pg (26.0-34.0); MCHC 33.2 g/dL (28.0-37.0); MCV 86.1 fL (80.0-100.0); MONOCYTES 9.7 %; MPV 6.6 fl. (7.2-11.1); NUCLEATED RBCS 0 /100WBC; PLATELET COUNT* 467 thou/uL (150-400); POLYS 64.1 %; RBC 3.49 mil/uL (4.20-5.00); RDW-CV 18.4 % (10.5-14.5); WBC 7.2 thou/uL (4.0-11.0)
[2019-10-25 06:06] LABS: CALCIUM 9.5 mg/dL (8.5-10.1); POTASSIUM 3.5 mmol/L (3.5-5.1)
[2019-10-25 08:00] VITALS: BP 133/61
--- NOTE | 2019-10-25 10:00 | NUR ---
PT.SLEEPING. WOKE HER FROM SLEEP. SHE WAS ORIENTED X 4. STATED SHE LIVES AT [facility]. SHE HAS A WALKER SHE USES TO AMBULATE. [facility] PROVIDE MEALS AND MEDS FOR PT. CAN RECEIVE SOME ASSIST FOR BATHEING. MAY NEED A HIGHER LEVEL OF CARE TEMPORARILY FOR WOUND CARE. WILL FOLLOW.
[2019-10-25 10:08] VITALS: BP 133/61
--- NOTE | 2019-10-25 12:41 | EKG ---
[place] [address] ELECTROCARDIOGRAM REPORT Name: XIMENALANALIZ JARROD Room: [address] ADM IN M.R.#: [id number] Admission: 10/24/19 Attend Phys: Sunny Alicia, Discharge: Date of : 46 Date of Service: 10/24/19 1610 Report #: [id number] THIS REPORT FOR: //name// [facility] ED Test Date: 2019-10-24 Test Time: 16:10:52 Pat Name: LIZ BUENO Department: Room: [facility] Gender: F Barking Machine Feeder: : 1950 Requested By: Ariel Joe Order Number: [id number] MD: Jesus Arndt Measurements Intervals [place] Rate: 77 P: 27 AK: 132 QRS: 22 QRSD: 77 T: 19 QT: 367 QTc: 416 Interpretive Statements Sinus rhythm Compared to ECG 07/30/2019 19:21:49 No significant changes Electronically Signed On 10-25-2019 12:41:21 CDT by Jesus Arndt [email or web address] <ELECTRONICALLY SIGNED> By: Jesus Arndt MD, MERGED WITH [facility] 10/25/19 1241 1610 1610 Jesus Arndt MD, MERGED WITH [facility] /EPI
[2019-10-25 17:09] VITALS: BP 134/64
--- NOTE | 2019-10-25 17:15 | CON ---
[facility] [address] [place] [address] CONSULTATION Name: LIZ BUENO Room: [address] IN M.R.#: [id number] Admission: 10/24/19 Attend Phys: Sunny Alicia MD Discharge: Date of : 48 Report #: [id number] THIS REPORT FOR: //name// cc: STEFANIA Kraus family physician/PCP STEFANIA Kraus family physician/PCP ~ THIS REPORT FOR: //name// CC: Sunny AGUIAR physician/PCP DATE OF SERVICE: 10/25/2019 INFECTIOUS DISEASE CONSULTATION ATTENDING PHYSICIAN: Sunny Alicia MD REASON FOR EVALUATION: Infected right total hip arthroplasty. HISTORY OF PRESENT ILLNESS: Chart reviewed, patient examined. This is a 69-year-old with history of rheumatoid arthritis, who had sustained a hip fracture, underwent hip hemiarthroplasty, which led to recurrent hip dislocations roughly 5 weeks ago and underwent total hip arthroplasty, has had a nonhealing issue of sinus tract. She is seen postoperative from an operative I and D, discussed with the surgeon, extended directly down to the hardware. Postop, she complains of severe pain. It is difficult to redirect her. She is on supplemental oxygen per mask. No documented fevers. She had empirically placed on vancomycin. Operative cultures are pending. Blood cultures from yesterday are sterile thus far. ALLERGIES: None known. CURRENT MEDICATIONS: Include amlodipine, ferrous sulfate, aspirin, pantoprazole, melatonin, enoxaparin, oxycodone as needed, vancomycin. PAST MEDICAL HISTORY: As described above, history of rheumatoid arthritis, reflux, osteoporosis, total right hip arthroplasty. SOCIAL HISTORY: Nonsmoker, no ethanol, no illicit drug use. FAMILY HISTORY: Noncontributory. REVIEW OF SYSTEMS: Not reliably obtained. PHYSICAL EXAMINATION: GENERAL: Again she is seen postop. She is in moderate to marked distress secondary to what she describes as right hip pain. She is quite restless, [place] [address] CONSULTATION Name: LIZ BUENO Room: [address]#: [id number] Admission: 10/24/19 Attend Phys: Sunny Alicia MD Discharge: Date of : 48 Report #: [id number] somewhat encephalopathic. She appears chronically ill, undernourished. VITAL SIGNS: Most recent temperature 98.1, pulse 86, respirations 16, blood pressure 133/61. SKIN: Warm, dry, no rashes. HEENT: Normocephalic. Extraocular muscles intact. Has an oxygen per mask. NECK: Supple. LUNGS: Diminished breath sounds. Few scattered crackles at the bases. HEART: Regular, occasional ectopy. I do not appreciate a murmur. ABDOMEN: Soft, nontender, nondistended. Does have a wound VAC in place over the right hip. GENITOURINARY: Deferred. RECTAL: Deferred. LABORATORY DATA: Blood culture 1 out of 2 is positive with gram-positive cocci. Sed rate of 86. Electrolytes: Sodium 139, potassium 3.5, chloride 105, bicarb 22, anion gap of 12, BUN and creatinine 19 and 1.0, estimated GFR of 55. CBC: White count 7.2, H and H 10.0 and 30.1, platelets of 467. Prealbumin low at 10.5. COVID testing was negative. Initial lactic acid 1.6. Liver function tests were otherwise unremarkable. Albumin of 2.5, total protein 6.6. ASSESSMENT AND PLAN: Right total hip arthroplasty complicated by infection, now with positive blood culture. It is unclear whether the latter is a contaminant or not. We will continue the vancomycin as prescribed. Certainly in discussion with the surgeon, I think it is unlikely that this is not infected and ultimately may have to remove the hardware, noted they put the vancomycin powder in. She appears somewhat debilitated and suspect a degree of immunosuppression with malnourishment. We will initiate incentive spirometry when she is able, monitor expectantly. <ELECTRONICALLY SIGNED> By: Yang Thompson MD 10/25/19 1715 1519 1545Jolatricia Thompson MD /nt
--- NOTE | 2019-10-25 18:23 | NUR ---
PT AOx4. PATIENT IS FORGETFUL AND REPEATS QUESTIONS WITH FREQUENT REQUESTS. PT HAD I&D WITH WV PLACEMENT AND RETURNED TO FLOOR IN STABLE COND. C/O PAIN IN RT HIP AND MANAGED WITH PO OXY. PT ADVANCED TO REG DIET AND TOLERATED WELL. FRAN DRAIN IN PLACE AND WV PATENT. HOURLY ROUNDING COMPLETE. WILL CONTINUE TO MONITOR
[2019-10-25 20:00] VITALS: BP 120/64
[2019-10-26 04:11] LABS: ABSOLUTE MONOCYTES 0.2 thou/uL (0.0-1.2); ABSOLUTE NEUTROPHILS 5.5 thou/uL (1.6-8.1); BASOPHILS 0.5 %; HEMOGLOBIN 10.5 gm/dL (12.0-15.0); LYMPHOCYTES 14.9 %; MCH 28.4 pg (26.0-34.0); MCHC 32.8 g/dL (28.0-37.0); MCV 86.4 fL (80.0-100.0); MONOCYTES 3.6 %; MPV 6.6 fl. (7.2-11.1); NUCLEATED RBCS 0 /100WBC; PLATELET COUNT* 399 thou/uL (150-400); RDW-CV 18.3 % (10.5-14.5); WBC 6.8 thou/uL (4.0-11.0)
[2019-10-26 04:30] VITALS: BP 162/63
[2019-10-26 04:35] LABS: ALBUMIN 2.1 g/dL (3.4-5.0); TOTAL BILIRUBIN 0.4 mg/dL (<0.1-1.0); TOTAL PROTEIN 6.2 g/dL (6.4-8.2)
[2019-10-26 04:42] LABS: POTASSIUM 4.8 mmol/L (3.5-5.1)
--- NOTE | 2019-10-26 06:46 | NUR ---
Alert and oriented x 4. Rt hip dressings are intact and in place. She has a woundvac to her rt hip and a FRAN drain all are intact. She has been turned. She had pain meds x 2 this shift. She has slept well.
[2019-10-26 07:42] VITALS: BP 151/61
--- NOTE | 2019-10-26 14:38 | NUR ---
WOUND NURSE: PATIENT SEEN FOLLOWING RECEIPT OF WOUND NURSE CONSULT. CALLED ORTHO TO VERIFY WOUND VAC DRESSING CHANGE ORDERS AND SPOKE WITH DR. Jamie CASTRO DO. REMOVED DRESSING AND CLEANSED WITH WOUND CLEANSER AND GAUZE. APPLIED GRANUFOAM TO THE WOUND BED, THEN COVERED WITH TRANSPARENT DRAPE WITH HOLD CUT TO ALLOW SUCTION. BRIDGED TRAC PAD TO THE ANTERIOR THIGH FOR COMFORT. REPLACED FOLDED 4X4'S AROUND FRAN DRAIN AND COVERED WITH TRANSPARENT DRAPE. THIS WAS TOLERATED WELL BY THE PATIENT. PATIENT INSTRUCTED ON REPORTABLE S/S. STATES SHE UNDERSTANDS. WOUND OPENING IS 10.0 X 2.5 X 2.0 CM. CONTAINS SMALL AMOUNT OF YELLOWISH TISSUE AND SIGNIFICANT AMOUNT OF RED NONGRANULATING TISSUE. SEROUSANGUINOUS DRAINAGE NOTED FROMT HE WOUND IN MODERATE AMOUNTS. THERE IS NO PERIWOUND REDNESS, WARMTH, OR INDURATION. THERE IS NO ODOR NOTED.
[2019-10-26 15:45] VITALS: BP 149/64
--- NOTE | 2019-10-26 17:08 | NUR ---
PT REMAINED ALERT AND ORIENTED. PT RESTING IN BED. Q2 TURNS COMPLETED. ISOLATION MAINTAINED. DRESSING CHANGED, PICTURES TAKEN. PAIN MEDS GIVEN ORDERED. FALL RISK PRECAUTIONS IN PLACE. HOURLY ROUNDING COMPLETED. WILL CONTINUE TO MONITOR.
--- NOTE | 2019-10-26 19:07 | NUR ---
WAS ABLE TO TALK WITH DAUGHTER IN LAW,BENITA THIS AFTERNOON. SPOKE WITH PT.[facility] BUT SHE SAID TO CALL [facility], SHE USUALLY TAKES CARE OF ALL OF THE ARRANGEMENTS. BENITA WOULD LIKE A SNF THAT HAS A QUALIFIED WOUND CARE NURSE.TOLD HER SOME FACILITIES HAVE WOUND CARE TEAMS COME INTO THE FACILITY AND DO THEIR DRESSING CHANGES. [facility] IS ONE. SHE SAID SHE WOULD LIKE THEM [facility]. TOLD HER [facility] IS SUPPOSED TO HAVE GOOD WOUND CARE. SHE SAID TO MAKE THAT HER SECOND CHOICE. CM WILL FAX REFERRALS TO BOTH. [phone]/FAX [phone] RENUKAESTUARDO BILLINGSQXEXW-[phone].
[2019-10-26 20:00] VITALS: BP 157/76
--- NOTE | 2019-10-27 04:18 | NUR ---
PT A&O, FORGETFUL AT TIMES. MEDS GIVEN ORDERED. PAIN MANAGED WITH OXY IR. DRESSING TO RT HIP C/D/I. WOUND VAC, FRAN DRAIN IN PLACE. ISOLATION MAINTAINED. PT INCONTINENT FOR BLADDER. BARRIER CREAM APPLIED PER PT REQUEST. CALL LIGHT WITHIN REACH. WILL CONTINUE TO MONITOR.
[2019-10-27 07:26] VITALS: BP 137/60
[2019-10-27 15:46] VITALS: BP 140/70
--- NOTE | 2019-10-27 18:10 | NUR ---
Pt AOx3, forgetful. Pt prefers to be in bed and resistant to doing therapies. Pt is up with assist x1 with gb and walker. WV is in place and patent. FRAN drain also in place, patent. C/o pain in r hip medicated with oxycodone po prn. Patient lost IV access and unable to obtain PIV x multiple sticks. Anesthesia unsuccessfully attempted a Central line, unable to obtain as pt was restless and uncooperative. PICC to arrive this evening to obtain access. Pt resting in bed, hourly rounding complete. Incontinence pads also in place. Will continue to monitor
[2019-10-27 20:00] VITALS: BP 149/71
--- NOTE | 2019-10-27 20:13 | NUR ---
CONSULTED TO PLACE A PICC FOR A PATIENT NEEDING ACCESS FOR IV ANTIBIOTICS FOR A POST OP INFECTION. ORDER AND CONSENT NOTED. THE PATIENT WAS NOT RESPONSIVE TO TEACHING. A RIGHT UPPER ARM BASILIC WAS WIDLEY PATENT. A #4F SINGLE LUMEN PICC WAS PLACED WITHOUT DIFFICULTY. LINE WAS TRIMMED TO 37CM AND ADVANCED TO 3CM EXTERNAL. LINE WAS CONFIRMED WITH 3CG AND RELEASED FOR USE
--- NOTE | 2019-10-28 04:47 | NUR ---
PT A&O, FORGETFUL AT TIMES. MEDS GIVEN ORDERED. RT HIP PAIN PARTIALLY CONTROLLED WITH OXY IR. PT HAS PICC LINE, C/O PAIN IN HER ARM, SAID SHE WANT IT OUT, EDUCATION GIVEN. PT DIDNT HAVE BM FOR 4 DAYS BUT REFUSED PRN MIRALAX. WOUND VAC, FRAN DRAIN IN PLACE. CALL LIGHT WITHIN REACH. WILL CONTINUE TO MONITOR.
[2019-10-28 05:22] LABS: HEMATOCRIT 29.6 % (37.0-47.0); HEMOGLOBIN 9.8 gm/dL (12.0-15.0); MCH 28.3 pg (26.0-34.0); MCV 85.6 fL (80.0-100.0); MPV 6.9 fl. (7.2-11.1); RBC 3.46 mil/uL (4.20-5.00); RDW-CV 18.2 % (10.5-14.5); WBC 12.6 thou/uL (4.0-11.0)
[2019-10-28 05:30] LABS: CALCIUM 9.1 mg/dL (8.5-10.1); CREATININE 1.1 mg/dL (0.6-1.3); MAGNESIUM 1.7 mg/dL (1.8-2.4); POTASSIUM 3.7 mmol/L (3.5-5.1); TOTAL BILIRUBIN 0.3 mg/dL (<0.1-1.0)
[2019-10-28 09:32] VITALS: BP 158/64
[2019-10-28 16:10] VITALS: BP 138/65
--- NOTE | 2019-10-28 18:31 | NUR ---
Pt moved to room 116 d/t isolation precautions. Pt is AOx3, forgetful and asld repetive questions. C/o pain to R hip, managing with PO oxycodone. Pt has WV to R hip and FRAN drain is patent. Pt is turned q2h when she allows staff to do so. Pt is receiving IV antibiotics per QUE PICC and tolerating well. Hourly rounding complete. Will cont to monitor
[2019-10-28 20:30] VITALS: BP 128/59
[2019-10-29 05:15] LABS: HEMATOCRIT 25.6 % (37.0-47.0); HEMOGLOBIN 8.7 gm/dL (12.0-15.0); MCH 29.1 pg (26.0-34.0); MCV 85.4 fL (80.0-100.0); MPV 6.5 fl. (7.2-11.1); RDW-CV 17.5 % (10.5-14.5); WBC 8.8 thou/uL (4.0-11.0)
--- NOTE | 2019-10-29 05:15 | NUR ---
PT AOX4, FORGETFUL. ABLE TO USE CALL LITE AND MAKE NEEDS KNOWN. REQUESTING PAIN MED FOR R HIP PAIN, MEDS GIVEN ORDERED WITH GOOD RESULT. PAINFUL WITH MOVEMENT, PT TURNED AND REPOSITIONED Q2 HOURS AND PRN PT WOULD ALLOW AND REQUESTS. QUE SL PICC, ABX GIVEN ORDERED, AM LABS DRAWN. INCONTINENT URINE, DENYS CARE GIVEN. WOUND VAC ON AND OPERATING TO R HIP, DRSG CDI. REMAINS ON CONTACT ISOLATION FOR MRSA. BENADRYL PO GIVEN ONCE FOR CO GENERALIZED ITCHING WITH GOOD RESULT. ABLE TO USE CALL LITE AND MAKE NEEDS KNOWN.
[2019-10-29 05:39] LABS: CALCIUM 8.9 mg/dL (8.5-10.1); CREATININE 1.1 mg/dL (0.6-1.3); MAGNESIUM 1.8 mg/dL (1.8-2.4); POTASSIUM 3.8 mmol/L (3.5-5.1)
[2019-10-29 07:30] VITALS: BP 138/66
--- NOTE | 2019-10-29 11:52 | NUR ---
UPDATED INFORMATION FAXED TO [facility] AND [facility]THO PROGRESS NOTE FROM TODAY, PICC LINE REPORT, WOUND CX AND BLOOD CX REPORTS, COVID TEST FROM 10/25,PT/OT EVALS.
--- NOTE | 2019-10-29 14:34 | NUR ---
WOUND NURSE: PATIENT SEEN TO ADDRESS POST OP OPEN INCISION ON RIGHT HIP: PRESENTS WITH PINK TO RED NONGRANULATING TISSUE AND 30% YELLOW TISSUE. THERE IS 150ML SEROUSANGUINOUS DRAINAGE IN THE CANNISTER. THERE IS NO PERIWOUND REDNESS, BUT LOCALIZED EDEMA IS NOTED. THERE ARE INTACT SUTURES AT EACH END OF THE SUTURE LINE. DR MUST HAVE REMOVED THE FRAN DRAIN AND COVERED IT WITH FOLDED 4X4 UNDER TRANSPARENT DRESSING. THERE IS AN INTACT SCAB COVERING THE SITE NOW, SO DID NOT DRESS THIS SITE.
[2019-10-29 15:34] VITALS: BP 130/61
--- NOTE | 2019-10-29 17:26 | NUR ---
PT REMAINED ALERT AND ORIENTED. PT C/O ITCHING, PAIN, AND NAUSEA. MEDS GIVEN ORDERED. PT WORKED WITH THERAPY. PT STATES DECREASED APPETITE. PICTURE TAKEN OF RIGHT HIP WOUND. FALL RISK PRECAUTIONS IN PLACE. HOURLY ROUNDING COMPLETED. WILL CONTINUE TO MONITOR. ISOLATION MAINTAINED.
[2019-10-29 20:20] VITALS: BP 131/57
[2019-10-30 05:34] LABS: HEMATOCRIT 25.2 % (37.0-47.0); HEMOGLOBIN 8.4 gm/dL (12.0-15.0); MCH 28.3 pg (26.0-34.0); MCHC 33.4 g/dL (28.0-37.0); MCV 84.8 fL (80.0-100.0); MPV 6.3 fl. (7.2-11.1); RBC 2.97 mil/uL (4.20-5.00); RDW-CV 17.7 % (10.5-14.5)
[2019-10-30 05:54] LABS: CALCIUM 8.4 mg/dL (8.5-10.1); MAGNESIUM 1.8 mg/dL (1.8-2.4); POTASSIUM 3.8 mmol/L (3.5-5.1)
--- NOTE | 2019-10-30 06:23 | NUR ---
PT SLEPT FAIRLY WELL OVERNIGHT, RECEIVING PO OXY AND BENADRYL PRN WITH GOOD RESULT. INCONTINENT URINE, DENYS CARE GIVEN. PT TURNED AND REPOSITIONED Q2 HOURS AND PRN FOR SKIN CARE AND COMFORT. WOUND VAC ON AND OPERATING TO R HIP AT 125 WITH SEROSANG DRAINAGE IN CONTAINER. QUE PICC SL, ABX GIVEN ORDERED. PT CO PICC "HURTING MY ARM". FLUSHES WELL AND DRAWS BLOOD EASILY-AM LABS DRAWN. BRUISING NOTED SIGHT. 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 ABLE TO USE CALL LITE AND MAKE NEEDS KNOWN. CM FOLLOWING FOR DC PLAN FOR SNF WITH IV ABX.
[2019-10-30 07:25] VITALS: BP 111/56
[2019-10-30] MEDS ORDERED: OXYCONTIN10 M1 PO (08:11)
[2019-10-30] MEDS ORDERED: OXYCODONE HCL 55 MG PO (08:11)
[2019-10-30 10:55] VITALS: BP 111/56
[2019-10-30] MEDS ORDERED: VANCOMYCIN500 MG/101 IV (12:34)
[2019-10-30] MEDS ORDERED: CEFTRIAXONE2 G1 IVPB (12:35)
--- NOTE | 2019-10-30 13:07 | NUR ---
[facility] CALLED ABOUT 1200 AND SAID THEY CAN ACCEPT PT.TO A SKILLED BED. SHE WILL ORDER A WOUND VAC TO USE AT THEIR FACILITY. FAXED DISCHARGE SUMMARY ,ID PROGRESS NOTE AND IV ANTIBIOTIC ORDERS TO [facility]. VAN TIME SET UP FOR 1430. NOTIFIED DAUGHTER,BENTIA, BY PHONE. LEFT HER A VM. ESTELLA CHUNG NOTIFIED PT. PT.TEARFUL,PER JULIET. CHART COPIED TO GO WITH [facility]OV[facility]. ESTELLA CHUNG TO CALL REPORT.
[2019-10-30 14:42] VITALS: BP 111/56
[2019-10-30 15:03] VITALS: BP 111/56
--- NOTE | 2019-10-30 15:03 | NUR ---
PT CHART COPIED. WOUND VAC TAKEN OFF AND WET TO DRY DRESSING PLACE. PICTURE RECENT OF YESTERDAY NO NEED FOR NEW PICS. PT BELONGINGS GATHERED. PT LEFT WITH PICC IN PLACE. REPORT CALLED TO FACILITY. FALL RISK PRECAUTIONS IN PLACE. ISOLATION MAINTAINED. HOURLY ROUNDING COMPLETED. PT LEFT VIA WHEELCHAIR WITH NURSING STAFF TO FACILITY.
== END 2019-10-30 15:04 | DRG 856 ==
LOC: M.ERS 15:10 → M.ORTHSURG 17:25 → M.TBA-ER 17:25 → M.ORTHSURG 19:04
PROVIDERS: Family Medicine; Internal Medicine; Orthopaedic Surgery; ADMIT Internal Medicine; ATTEND Internal Medicine
PROC: 0QD Lower Bones, Extraction (ICD-10-PCS; principal; 2019-10-25)
PROC: 02HV33Z Insertion of Infusion Device into Superior Vena Cava, Percutaneous Approach (ICD-10-PCS; 2019-10-27)
DX: T81.49XA Infection following a procedure, other surgical site, initial encounter (principal); A41.01 Sepsis due to Methicillin susceptible Staphylococcus aureus; E43 Unspecified severe protein-calorie malnutrition; T81.31XA Disruption of external operation (surgical) wound, not elsewhere classified, initial encounter; Z68.1 Body mass index [BMI] 19.9 or less, adult; M06.9 Rheumatoid arthritis, unspecified; I10 Essential (primary) hypertension; K21.9 Gastro-esophageal reflux disease without esophagitis; M81.0 Age-related osteoporosis without current pathological fracture; Z96.641 Presence of right artificial hip joint; Y92.89 Other specified places as the place of occurrence of the external cause; Z79.899 Other long term (current) drug therapy; Z79.891 Long term (current) use of opiate analgesic; Z79.82 Long term (current) use of aspirin; Z03.818 Encounter for observation for suspected exposure to other biological agents ruled out

== ENCOUNTER → 2019-11-19 | Outpatient (CLI) | payer MEDICARE, OTHER, MEDICAID ==
[~2019-11-19] MED LIST changes: +CEFTRIAXONE2 G1 IVPB; +VANCOMYCIN500 MG/101 IV
== END ==
LOC: M.WC 09:00
PROVIDERS: ATTEND Surgery
DX: T84.51XA Infection and inflammatory reaction due to internal right hip prosthesis, initial encounter (principal); T81.31XA Disruption of external operation (surgical) wound, not elsewhere classified, initial encounter; I10 Essential (primary) hypertension; K21.9 Gastro-esophageal reflux disease without esophagitis; M81.0 Age-related osteoporosis without current pathological fracture; M06.9 Rheumatoid arthritis, unspecified; F03.90 Unspecified dementia, unspecified severity, without behavioral disturbance, psychotic disturbance, mood disturbance, and anxiety; Z96.641 Presence of right artificial hip joint; Y92.89 Other specified places as the place of occurrence of the external cause; Y83.8 Other surgical procedures as the cause of abnormal reaction of the patient, or of later complication, without mention of misadventure at the time of the procedure

== ENCOUNTER → 2019-11-26 | Outpatient (CLI) | payer MEDICARE | LOC: M.WC 02:48 | PROVIDERS: ATTEND Family Medicine | DX: T84.51XD Infection and inflammatory reaction due to internal right hip prosthesis, subsequent encounter (principal); L98.8 Other specified disorders of the skin and subcutaneous tissue; M81.0 Age-related osteoporosis without current pathological fracture; K21.9 Gastro-esophageal reflux disease without esophagitis; I10 Essential (primary) hypertension; M06.9 Rheumatoid arthritis, unspecified; F03.90 Unspecified dementia, unspecified severity, without behavioral disturbance, psychotic disturbance, mood disturbance, and anxiety; Y83.1 Surgical operation with implant of artificial internal device as the cause of abnormal reaction of the patient, or of later complication, without mention of misadventure at the time of the procedure ==